=== PATIENT | female | born 1945 | race Caucasian/White ===

== ENCOUNTER 2020-11-02 18:58 | Emergency (ER) | payer MEDICARE, SELFPAY ==
[2020-11-02 19:12] VITALS: BP 162/62; PULSE 65; RESP 20; TEMP 36.7; O2SAT 98
[2020-11-02 19:26] VITALS: BP 162/62; PULSE 65; RESP 20; TEMP 36.7; O2SAT 98
--- NOTE | 2020-11-02 20:09 | ED.SKABFB ---
HPI - Skin/Abscess/Foreign Bdy General Chief complaint: Skin/Abscess/Foreign Body Stated complaint: Dog bite right arm Time Seen by Provider: 11/02/20 20:09 Source: patient and RN notes reviewed Mode of arrival: ambulatory Limitations: no limitations History of Present Illness HPI narrative: 75-year-old female who presents to [facility] with complaints of being bit by her family dog and around 5:30 PM today. Patient has 2 small puncture wounds and 2 small skin tears to the right distal forearm no drainage noted. Patient is on Eliquis and bruising noted to right distal forearm. Patient states that her Tetanus is up to date. Patient rates her pain 4/10 is aching, has not taken anything OTC for discomfort. She states she cleansed wounds at home with alcohol prior to arrival to clinic. MD complaint: other (Dog bite ) Related Data Home Medications Medication Instructions Recorded Confirmed apixaban [Eliquis] 5 mg PO DAILY 11/02/20 11/02/20 baclofen 10 mg PO DAILY 11/02/20 11/02/20 carvedilol 25 mg PO BID 11/02/20 11/02/20 ezetimibe 10 mg PO DAILY 11/02/20 11/02/20 flecainide 100 mg PO BID 11/02/20 11/02/20 furosemide 11/02/20 furosemide 40 mg PO BID 11/02/20 11/02/20 gabapentin 300 mg PO TID 11/02/20 11/02/20 insulin detemir U-100 [Levemir 44 unit SUBCUT DAILY 11/02/20 11/02/20 FlexTouch U-100 Insuln] liraglutide [Victoza 3-Chaz] 0.6 mg SUBCUT DAILY 11/02/20 11/02/20 ropinirole 0.5 mg PO DAILY 11/02/20 11/02/20 spironolactone 25 mg PO DAILY 11/02/20 11/02/20 Allergies Allergy/AdvReac Type Severity Reaction Status Date / Time codeine AdvReac Unknown Nausea Verified 02/10/14 20:18 Review of Systems Review of Systems: CONSTITUTIONAL: Denies fever, chills, or sweats. EYES: Denies visual changes, redness, or discharge. ENT: Denies rhinorrhea, congestion, sore throat, or otalgia. CARDIOVASCULAR: Denies chest pain, palpitations, or edema. RESPIRATORY: Denies cough or dyspnea. GASTROINTESTINAL: Denies abdominal pain, nausea, vomiting, or diarrhea. GENITOURINARY: Denies dysuria or hematuria. SKIN: Denies rash or itching.positive skin tears with bite gooden to right distal forearm from dog bite MUSCULOSKELETAL: Denies back pain, joint pain, or myalgia. NEUROLOGIC: Denies headache, numbness, or weakness. PSYCHIATRIC: Denies anxiety or depression. All systems reviewed & are unremarkable except as noted in HPI and below PMFSH Past Medical History Medical History (Updated 11/08/20 @ 11:52 by Kareen Moore NP) Breast cancer with chemotherapy Diabetes mellitus Elevated cholesterol Hypertension Restless leg syndrome Surgical History Surgical History (Updated 11/08/20 @ 11:51 by Kareen Moore NP) History of bilateral mastectomy History of heart valve replacement aortic Social History Social History (Updated 11/08/20 @ 11:52 by Kareen Moore NP) Smoking status: Never smoker Alcohol intake: current Alcohol use details: rare Substance use: never Living arrangements: with family Gender identity (if verbalized by the patient): Female Comments At time of signature, agree with nursing past medical, surgical, social and family history. There is no relevant family history pertinent to the presenting complaint Exam Narrative: GENERAL: Well-appearing, well-nourished, and in no acute distress. HEAD: Normocephalic, atraumatic. EYES: PERRLA and EOMI. ENT: Nares clear, no rhinorrhea or epistaxis. Mucous membranes moist. NECK: Supple. CHEST: Clear to auscultation. No respiratory distress. HEART: Regular rate and rhythm. No murmur heard. Normal peripheral pulses. ABDOMEN: Soft, nontender, nondistended, normal active bowel sounds. EXTREMITIES: Normal range of motion. No edema. SKIN: Warm, dry, Positive for puncture gooden to right distal forearm with 2 small skin tears noted with no active bleeding noted, swelling and bruising is present, patient is on Eliquis post aortic alix replacement. Tetanus is up t
== END 2020-11-02 20:32 | disposition home or self-care (01) ==
PROVIDERS: Emergency Provider Registered Nurse; PCP Internal Medicine
DX: S51.811A Laceration without foreign body of right forearm, initial encounter (principal); W54.0XXA Bitten by dog, initial encounter; Z79.01 Long term (current) use of anticoagulants; I10 Essential (primary) hypertension; E78.00 Pure hypercholesterolemia, unspecified; E11.9 Type 2 diabetes mellitus without complications; Z95.2 Presence of prosthetic heart valve; Z90.10 Acquired absence of unspecified breast and nipple
CPT/HCPCS: 99203; G0463

== ENCOUNTER 2020-11-14 10:00 | Emergency (ER) | payer MEDICARE, SELFPAY ==
[2020-11-14 10:07] VITALS: BP 152/55; PULSE 61; RESP 16; TEMP 37.3; O2SAT 100
--- NOTE | 2020-11-14 10:09 | ED.SKABFB ---
HPI - Skin/Abscess/Foreign Bdy General Chief complaint: Skin/Abscess/Foreign Body Stated complaint: rash Time Seen by Provider: 11/14/20 10:09 History of Present Illness HPI narrative: 75-year-old female presents to the [facility] with complaints of a rash to her face. Patient states that she noticed it yesterday and started at her left ear and has simply gone from the left ear across her face into her eyelids. No tongue swelling or lip swelling. Denies fevers. Denies shortness of breath, chest pain or abdominal pain. No treatment prior to arrival Related Data Home Medications Medication Instructions Recorded Confirmed apixaban [Eliquis] 5 mg PO DAILY 11/02/20 11/14/20 baclofen 10 mg PO DAILY 11/02/20 11/14/20 carvedilol 25 mg PO BID 11/02/20 11/14/20 ezetimibe 10 mg PO DAILY 11/02/20 11/14/20 flecainide 100 mg PO BID 11/02/20 11/14/20 furosemide 40 mg PO BID 11/02/20 11/14/20 gabapentin 300 mg PO TID 11/02/20 11/14/20 insulin detemir U-100 [Levemir 44 unit SUBCUT DAILY 11/02/20 11/14/20 FlexTouch U-100 Insuln] liraglutide [Victoza 3-Chaz] 0.6 mg SUBCUT DAILY 11/02/20 11/14/20 ropinirole 0.5 mg PO DAILY 11/02/20 11/14/20 spironolactone 25 mg PO DAILY 11/02/20 11/14/20 Allergies Allergy/AdvReac Type Severity Reaction Status Date / Time codeine AdvReac Unknown Nausea Verified 11/14/20 10:13 Review of Systems Review of Systems: All systems reviewed & are unremarkable except as noted in HPI and below Constitutional: Constitutional: Reports no additional constitutional complaints, Denies chills and Denies fever(s) Eyes: Eyes: Reports no additional eye complaints ENT: Reports system reviewed and no additional complaints, except as documented Cardiovascular: Cardiovascular: Reports no additional cardiovascular complaints Respiratory: Respiratory: Reports no additional respiratory complaints Musculoskeletal: Musculoskeletal: Reports no additional musculoskeletal complaints Integumentary/Breasts: Skin/Breast: Reports as per HPI, Reports pruritus, Reports erythema and Reports rash Neurologic: Reports system reviewed and no additional complaints, except as documented Psychiatric: Psychiatric: Reports no additional psychiatric complaints Allergic/Immunologic: Allergic/Immunologic: Reports no additional allergic/immunologic complaints, Denies lip swelling, Denies throat swelling, Denies tongue swelling and Denies wheezing PMFSH Past Medical History Medical History Breast cancer with chemotherapy Diabetes mellitus Elevated cholesterol Hypertension Restless leg syndrome Surgical History Surgical History History of bilateral mastectomy History of heart valve replacement aortic Social History Social History Smoking status: Never smoker Alcohol intake: current Alcohol use details: rare Substance use: never Gender identity (if verbalized by the patient): Female Comments At the time of my signature, I reviewed and agree with the nursing past medical, surgical, social, and family history. There is no relevant family history pertinent to the patient complaint. Exam Const: General: no acute distress, alert and ill appearing chronically Nutritional Appearance: well nourished and obese Orientation/consciousness: patient oriented x3 Limitations: no limitations HENMT: Head: normal to inspection Ears: external ears normal, TM's normal bilaterally and EAC's normal Eyes: Conjunctivae: conjunctivae normal Pupils: Equal, round and reactive pupils present Neck: Neck: normal visual inspection, no lymphadenopathy and no meningeal signs Chest: Chest palpation & inspection: normal inspection of the chest Resp: Effort & Inspection: normal respiratory effort Auscultation: clear to auscultation bilaterally Cardio: Rate: regular rate Rhythm: regular rhythm
== END 2020-11-14 10:23 | disposition home or self-care (01) ==
PROVIDERS: Emergency Provider Nurse Practitioner; PCP Internal Medicine
DX: R21 Rash and other nonspecific skin eruption (principal); E11.9 Type 2 diabetes mellitus without complications; I10 Essential (primary) hypertension; Z79.01 Long term (current) use of anticoagulants; Z79.4 Long term (current) use of insulin
CPT/HCPCS: 99213; G0463

== ENCOUNTER 2021-03-14 11:47 | Emergency (ER) | payer MEDICARE, SELFPAY ==
--- NOTE | ~2021-03-14 | XR_ITS ---
XR pelvis 1-2V DATE: 03/14/2021 14:33 INDICATION: Low back pain, pelvis pain. No known injury. TECHNIQUE: 2 AP views COMPARISON: None FINDINGS: The pubic symphysis and sacroiliac joints are intact. No pelvic fracture or bone destructio n is detected. No fracture or dislocation is evident at either hip. IMPRESSION: No pelvic fracture or bone destruction is detected Reviewed, dictated and finalized at location A. LITIES AND GROUNDS DIRECTOR
--- NOTE | ~2021-03-14 | XR_ITS ---
EXAMINATION: XR chest 2V DATE: 03/14/2021 14:32 INDICATION: Shortness of breath TECHNIQUE: PA and lateral views of the chest were obtained. COMPARISON: None FINDINGS: Lungs are clear with no focal airspace opacities, pulmonary edema, pleural effusion or pneumothorax. Heart size is normal. Right upper mediastinal mass. Postoperative changes including aortic valve repl acement, surgical clips at the anterolateral right chest wall the junction of the right breast and ax illa as well as numerous surgical clips and more anterior skin raj in the upper abdomen. There ar e bridging osteophytes at multiple levels in the spine, consistent with diffuse idiopathic skeletal h yperostosis (DISH). Old sternal fracture. IMPRESSION: 1. Right upper mediastinal mass which could be due to lymphadenopathy, lymphoma or other neoplasm eit her benign or malignant and either tortuous or aneurysmal vasculature. Recommend further evaluation w ith contrast-enhanced chest CT. 2. No acute cardiopulmonary disease. Reviewed, dictated and finalized at location A. LE PAINT SPECIALIST IMPRESSION: 1. Right upper mediastinal mass which could be due to lymphadenopathy, lymphoma or other neoplasm either benign or malignant and either tortuous or aneurysmal vasculature. Recommend further evaluation with contrast-enhanced chest CT. 2. No acute cardiopulmonary disease.
--- NOTE | ~2021-03-14 | XR_ITS ---
XR lumbar spine 2-3V DATE: 03/14/2021 14:33 INDICATION: Low back pain. No known injury. TECHNIQUE: AP, lateral, coned lateral lumbosacral views COMPARISON: None FINDINGS: There is diffuse osteopenia. There is mild to moderate dextroscoliosis of the lumbar spine. There is degenerative spurring of the lower thoracic spine. There is multilevel degenerative disc disease, most pronounced at L1-2 and L2-3, moderate at L3-4 and L5-S1. There is associated mild retrolisthesis at L2-3. There is degenerative change at the apophyseal joints particularly in the mid and lower lumbar and roya mbosacral area with associated grade 1 anterolisthesis at L4-5. The sacroiliac joints are intact. There is extensive calcification of the abdominal aorta and common iliac arteries; no abdominal aorti c aneurysm is evident. IMPRESSION: Diffuse osteopenia Dextro scoliosis of the lumbar spine Extensive degenerative changes Reviewed, dictated and finalized at location A. SKIDDER
--- NOTE | ~2021-03-14 | XR_ITS ---
XR sacrum coccyx min 2V DATE: 03/14/2021 14:34 INDICATION: Low back pain. No known injury. TECHNIQUE: AP, angled AP and lateral views COMPARISON: None FINDINGS: The pubic symphysis and sacroiliac joints are intact. No sacral fracture or bone destructio n is detected. The coccyx appears intact. IMPRESSION: No sacral or coccygeal fracture is evident Reviewed, dictated and finalized at location A. B2B OUTSIDE SALES REPRESENTATIVE
[2021-03-14 12:05] VITALS: BP 151/65; PULSE 69; RESP 20; TEMP 37; O2SAT 100
--- NOTE | 2021-03-14 13:17 | ED.GENADULT ---
HPI - General Adult General Chief complaint: Back Pain/Injury Stated complaint: Lower back pain Source: patient Mode of arrival: ambulatory Limitations: no limitations History of Present Illness HPI narrative: Patient presents for pain in the coccyx since last . She cannot identify any precipitating cause or injury. Pain is intermittent, more notable when standing and sitting, relieved when laying down. Providing of the descriptive quality of the pain. She rates that 8 out of 10 in severity. No urinary symptoms. She states that last Sunday she developed some sinus congestion. She took a home COVID test last which was positive. She denies any fever, chills, loss of taste/smell, cough, shortness of breath, nausea, vomiting, diarrhea. She lives with her . He is not symptomatic. She has received both doses of her COVID-vaccine as well as a booster. She has an underlying hx of congestive heart failure, atrial fibrillation, diabetes, hyperlipidemia, obesity. She is anticoagulated with Eliquis. She has not been checking her BS as of late. Related Data Home Medications Medication Instructions Recorded Confirmed apixaban [Eliquis] 5 mg PO DAILY 11/02/20 03/14/21 baclofen 10 mg PO DAILY 11/02/20 03/14/21 carvedilol 25 mg PO BID 11/02/20 03/14/21 ezetimibe 10 mg PO DAILY 11/02/20 03/14/21 flecainide 100 mg PO BID 11/02/20 03/14/21 furosemide 40 mg PO BID 11/02/20 03/14/21 gabapentin 300 mg PO TID 11/02/20 03/14/21 liraglutide [Victoza 3-Chaz] 0.6 mg SUBCUT DAILY 11/02/20 03/14/21 ropinirole 0.5 mg PO DAILY 11/02/20 03/14/21 spironolactone 25 mg PO DAILY 11/02/20 03/14/21 insulin degludec [Tresiba 40 unit SUBCUT DAILY 03/14/21 03/14/21 FlexTouch U-200] Allergies Allergy/AdvReac Type Severity Reaction Status Date / Time codeine AdvReac Unknown Nausea Verified 03/14/21 12:49 Review of Systems Review of Systems: CONSTITUTIONAL: Denies fever, chills, or sweats. EYES: Denies visual changes, redness, or discharge. ENT: Reports recent sinus congestion, now resolved. Denies rhinorrhea, sore throat, or otalgia. CARDIOVASCULAR: Denies chest pain, palpitations, or edema. RESPIRATORY: Denies cough or dyspnea. GASTROINTESTINAL: Denies abdominal pain, nausea, vomiting, or diarrhea. GENITOURINARY: Denies dysuria or hematuria. SKIN: Denies rash or itching. MUSCULOSKELETAL: Reports pain in the tailbone. NEUROLOGIC: Denies headache, numbness, dizziness, or weakness. PSYCHIATRIC: Denies anxiety or depression. [facility] Past Medical History Medical History (Updated 03/14/21 @ 15:58 by John Cho, ROZINA, BC) Atrial fibrillation Breast cancer with chemotherapy Congestive heart failure Diabetes mellitus Elevated cholesterol Hypertension Restless leg syndrome Surgical History Surgical History History of bilateral mastectomy History of heart valve replacement aortic No pertinent past surgical history Family History Family History (Updated 03/14/21 @ 13:21 by John Cho, PIANO REGULATOR INSPECTOR, BC) Mother No pertinent past medical history Social History Social History Smoking status: Never smoker Alcohol intake: current Alcohol use details: rare Substance use: never Living arrangements: with family Gender identity (if verbalized by the patient): Female Sexual Orientation (if Verbalized by the Patient): Straight or Heterosexual Spiritual care concerns: No Exam Narrative: GENERAL: Appears mildly ill, although nontoxic HEAD: Normocephalic, atraumatic. EYES: PERRLA and EOMI. ENT: Nares clear, no rhinorrhea or epistaxis. Mucous membranes moist. Oropharynx without tonsillar hypertrophy exudate or other lesions. Bilateral TMs pearly vega nonbulging NECK: Supple. No adenopathy or masses. No carotid bruits or JVD CHEST: Bilateral wheezing and rales noted HEART: Regular rate
[2021-03-14 13:30] LABS: Glucose Point of Care 153 mg/dl (65-105)
== END 2021-03-14 15:50 | disposition short-term general hospital (02) ==
PROVIDERS: Emergency Provider Nurse Practitioner; PCP Internal Medicine
DX: U07.1 COVID-19 (principal); J98.59 Other diseases of mediastinum, not elsewhere classified; M54.50 Low back pain, unspecified; I48.91 Unspecified atrial fibrillation; I11.0 Hypertensive heart disease with heart failure; I50.9 Heart failure, unspecified; G25.81 Restless legs syndrome; E78.00 Pure hypercholesterolemia, unspecified; Z85.3 Personal history of malignant neoplasm of breast; Z90.13 Acquired absence of bilateral breasts and nipples; E11.9 Type 2 diabetes mellitus without complications; Z95.2 Presence of prosthetic heart valve; Z92.21 Personal history of antineoplastic chemotherapy; Z79.01 Long term (current) use of anticoagulants; E78.5 Hyperlipidemia, unspecified
CPT/HCPCS: 71046; 72100; 72170; 72220; 81003; 82948; 87426; 99214; C9803; G0463

== ENCOUNTER 2023-06-14 10:58 | Emergency (ER) | payer MEDICARE, SELFPAY ==
[2023-06-14 11:17] VITALS: BP 149/59; PULSE 71; RESP 16; TEMP 36.8; O2SAT 95
--- NOTE | 2023-06-14 11:32 | ED.GENADULT ---
HPI - General Adult General Chief complaint: Wound/Laceration Stated complaint: Wound on Left Arm Time Seen by Provider: 06/14/23 11:32 Source: patient, RN notes reviewed and old records reviewed Mode of arrival: ambulatory Limitations: no limitations History of Present Illness HPI narrative: 77-[facility]-old [facility] to [facility] for complaint of skin tear to left distal dorsal forearm. Patient states she hit her arm on her walker yesterday. patient was able to control bleeding at home. Patient has been cleaned and dressed wound with pressure dressing at home. Patient is coming in today with increased pain and for wound check. Patient denies fever, nausea, numbness, tingling. bleeding controlled upon arrival. Patient in no acute distress. Related Data Home Medications Medication Instructions Recorded Confirmed baclofen 10 mg tablet 10 mg PO DAILY 11/02/20 03/14/21 carvedilol 25 mg tablet 25 mg PO BID 11/02/20 03/14/21 ezetimibe 10 mg tablet 10 mg PO DAILY 11/02/20 03/14/21 flecainide 100 mg tablet 100 mg PO BID 11/02/20 03/14/21 furosemide 40 mg tablet 40 mg PO BID 11/02/20 03/14/21 gabapentin 300 mg capsule 300 mg PO TID 11/02/20 03/14/21 liraglutide 0.6 mg/0.1 mL (18 mg/3 0.6 mg subcut DAILY 11/02/20 03/14/21 mL) subcutaneous pen injector (Victoza 3-Chaz) ropinirole 0.5 mg tablet 0.5 mg PO DAILY 11/02/20 03/14/21 insulin degludec 200 unit/mL (3 40 unit subcut DAILY 03/14/21 03/14/21 mL) subcutaneous pen (Tresiba FlexTouch U-200 insulin) Daily Multivitamin 06/14/23 [place] 3 1 g 06/14/23 cholecalciferol (vitamin D3) 25 25 mcg PO DAILY 06/14/23 06/14/23 mcg (1,000 unit) capsule (Vitamin D3) finerenone 10 mg tablet (Kerendia) mg 06/14/23 rivaroxaban 15 mg tablet (Xarelto) 15 mg PO DAILY 06/14/23 06/14/23 Allergies Allergy/AdvReac Type Severity Reaction Status Date / Time codeine AdvReac Unknown Nausea Verified 06/14/23 11:09 Review of Systems Review of Systems: All systems reviewed & are unremarkable except as noted in HPI and below Constitutional: Constitutional: Reports as per HPI and Denies fever(s) Eyes: Eyes: Reports no additional eye complaints ENT: Reports system reviewed and no additional complaints, except as documented Cardiovascular: Cardiovascular: Reports no additional cardiovascular complaints, Denies chest pain and Denies dyspnea Respiratory: Respiratory: Reports no additional respiratory complaints, Denies cough and Denies dyspnea Musculoskeletal: Musculoskeletal: Reports no additional musculoskeletal complaints Integumentary/Breasts: Skin/Breast: Reports wounds (skin tear to left lower arm) Neurologic: Reports system reviewed and no additional complaints, except as documented Psychiatric: Psychiatric: Reports no additional psychiatric complaints [facility] Past Medical History Medical History Atrial fibrillation Breast cancer with chemotherapy Congestive heart failure Diabetes mellitus Elevated cholesterol Hypertension Restless leg syndrome Surgical History Surgical History History of bilateral mastectomy History of heart valve replacement aortic No pertinent past surgical history Family History Family History Mother No pertinent past medical history Social History Social History Smoking status: Never smoker Alcohol intake: current Alcohol use details: rare Substance use: never Living arrangements: with family Gender identity (if verbalized by the patient): Female Sexual Orientation (if Verbalized by the Patient): Straight or Heterosexual Spiritual care concerns: No Comments At the time of my signature, I reviewed and agree with the nursing past medical, surgical, social, and family history. There is
== END 2023-06-14 12:18 | disposition home or self-care (01) ==
PROVIDERS: Emergency Provider Nurse Practitioner Family; PCP Internal Medicine
DX: S51.812A Laceration without foreign body of left forearm, initial encounter (principal); W22.8XXA Striking against or struck by other objects, initial encounter; I48.91 Unspecified atrial fibrillation; I11.0 Hypertensive heart disease with heart failure; I50.9 Heart failure, unspecified; G25.81 Restless legs syndrome; E11.9 Type 2 diabetes mellitus without complications; Z85.3 Personal history of malignant neoplasm of breast; Z90.13 Acquired absence of bilateral breasts and nipples; Z92.21 Personal history of antineoplastic chemotherapy; Z95.2 Presence of prosthetic heart valve
CPT/HCPCS: 99212; G0463

== ENCOUNTER 2023-12-17 11:52 | Emergency (ER) | payer MEDICARE, SELFPAY ==
[2023-12-17 12:00] VITALS: BP 124/46; PULSE 78; RESP 20; TEMP 37.7; O2SAT 97
--- NOTE | 2023-12-17 12:01 | ED.FEMALEGU ---
HPI - Female Genitourinary General Chief complaint: Urogenital-Female Stated complaint: Fatigue/Urinary Problem Time Seen by Provider: 12/17/23 11:53 Source: patient Mode of arrival: ambulatory Limitations: no limitations History of Present Illness HPI Narrative: Patient is a 78-year-old female who presents with 2 days of urinary frequency and urgency. Patient has also had fatigue. reports yesterday after she woke up out of a nap she had a short episode of confusion talking about her son. Denies any low back pain, bladder pain, fever, chills, nausea, vomiting, diarrhea. MD elicited complaint: dysuria Related Data Home Medications Medication Instructions Recorded Confirmed baclofen 10 mg tablet 10 mg PO DAILY 11/02/20 03/14/21 carvedilol 25 mg tablet 25 mg PO BID 11/02/20 03/14/21 ezetimibe 10 mg tablet 10 mg PO DAILY 11/02/20 03/14/21 flecainide 100 mg tablet 100 mg PO BID 11/02/20 03/14/21 furosemide 40 mg tablet 40 mg PO BID 11/02/20 03/14/21 gabapentin 300 mg capsule 300 mg PO QID 11/02/20 03/14/21 liraglutide 0.6 mg/0.1 mL (18 mg/3 0.6 mg subcut DAILY 11/02/20 03/14/21 mL) subcutaneous pen injector (Victoza 3-Chaz) ropinirole 0.5 mg tablet 0.5 mg PO DAILY 11/02/20 03/14/21 insulin degludec 200 unit/mL (3 40 unit subcut DAILY 03/14/21 03/14/21 mL) subcutaneous pen (Tresiba FlexTouch U-200 insulin) Daily Multivitamin 06/14/23 [place] 3 1 g 06/14/23 cholecalciferol (vitamin D3) 25 25 mcg PO DAILY 06/14/23 06/14/23 mcg (1,000 unit) capsule (Vitamin D3) finerenone 10 mg tablet (Kerendia) mg 06/14/23 rivaroxaban 15 mg tablet (Xarelto) 15 mg PO DAILY 06/14/23 06/14/23 Allergies Allergy/AdvReac Type Severity Reaction Status Date / Time codeine AdvReac Unknown Nausea Verified 09/05/23 16:16 Review of Systems Review of Systems: All systems reviewed & are unremarkable except as noted in HPI and below Constitutional: Constitutional: Denies chills, Denies fever(s), Denies headache(s), Denies malaise and Denies weakness Eyes: Eyes: Denies change in vision, Denies eye discharge and Denies irritation ENT: Denies otalgia, Denies headache(s), Denies nasal congestion, Denies nasal discharge, Denies sinus pain and Denies sore throat Cardiovascular: Cardiovascular: Denies chest pain, Denies edema, Denies palpitations and Denies dyspnea Respiratory: Respiratory: Denies cough and Denies dyspnea Gastrointestinal: Gastrointestinal: Denies abdominal pain, Denies diarrhea, Denies nausea and Denies vomiting Genitourinary: Genitourinary: Denies hematuria, Reports nocturia, Reports dysuria, Denies flank pain and Reports urinary urgency Musculoskeletal: Musculoskeletal: Denies back pain and Denies numbness Integumentary/Breasts: Skin/Breast: Denies pruritus and Denies rash Neurologic: Denies headache(s), Denies numbness and Denies weakness Psychiatric: Psychiatric: Reports no additional psychiatric complaints Endocrine: Endocrine: Reports fatigue and Denies palpitations PMFSH Past Medical History Medical History Atrial fibrillation Breast cancer with chemotherapy Congestive heart failure Diabetes mellitus Elevated cholesterol Hypertension Restless leg syndrome Surgical History Surgical History History of bilateral mastectomy History of heart valve replacement aortic No pertinent past surgical history Family History Family History Mother No pertinent past medical history Social History Social History Smoking status: Never smoker Alcohol intake: current Alcohol use details: rare Substance use: never Living arrangements: with family Gender identity (if verbalized by the patient): Female Sexual Orientation (if Verbalized by the Patient): Straight or H
[2023-12-17 12:28] LABS: EDUAAPPEAR Clear; EDUABILI Negative (Negative); EDUABLOOD Trace (Negative); EDUACOLOR1 Yellow; EDUAGLUCOSE Negative (Negative); EDUAKETONE Negative (Negative); EDUALEUKO Negative (Negative); EDUANITRATE Negative (Negative); EDUAPROTEIN Negative (Negative); EDUAUROBILI 0.2
[2023-12-17 13:00] LABS: EDCOVIDSCREEN Negative (Negative); EDINFLUASCREEN Negative (Negative); EDINFLUBSCREEN Negative (Negative)
== END 2023-12-17 12:55 | disposition home or self-care (01) ==
PROVIDERS: Emergency Provider Nurse Practitioner Family; PCP Internal Medicine
DX: R35.0 Frequency of micturition (principal); R53.83 Other fatigue; Z20.822 Contact with and (suspected) exposure to COVID-19; I48.91 Unspecified atrial fibrillation; I11.0 Hypertensive heart disease with heart failure; I50.9 Heart failure, unspecified; E11.9 Type 2 diabetes mellitus without complications; G25.81 Restless legs syndrome; E78.00 Pure hypercholesterolemia, unspecified; Z85.3 Personal history of malignant neoplasm of breast; Z90.13 Acquired absence of bilateral breasts and nipples; Z95.2 Presence of prosthetic heart valve
CPT/HCPCS: 81003; 87086; 87426; 87804; 99213; G0463

== ENCOUNTER 2024-05-30 14:41 | Emergency (ER) | payer MEDICARE, SELFPAY ==
--- OUTSIDE RECORDS SUMMARY | 2024-05-30 14:44 | XMS_ITS | Encounter Summary ---
Author Organization [facility] Address [address] [place] [address] Care Team Providers Care Relocation Director Name Role Phone Coleman Barrera MD Primary Care Provider + Romain Joaquin MD Unavailable [phone] Edin Banks MD Unavailable [phone] Kathy Nash MD Unavailable [phone] Michele Eldridge MD Unavailable [phone] Encounter Details Date Type Department Care Team (Late st Contact Info) Description 05/03/2023 Documentation [facility] IM [address] [place], [place] [id number] Verena Motley RN Social History Tobacco Use Types Packs/Day Years Used Date Smoking Tobacco: Never Smokeless Tobacco: Never Alcohol Use Standard Drinks/Week Comments No 0 (1 standard drink = 0.6 oz pur e alcohol) AUDIT-C Answer Date Recorded Q1: How often do you have a drink containing alcohol? Never 05/02/2023 Q2: How many drinks containi ng alcohol do you have on a typical day when you are drinking? Patient does not drink Q3: How often do you have si x or more drinks on one occasion? Never 05/02/2023 Personal Safety Answer Date Recorded Have you ever been in or are you currently in a harmful physical or emotional relationship or is someone making you feel afraid or unsafe? 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 Gender Identity Not on file Sexual Orientation Straight 04/04/2019 4: 40 PM FITTINGS TIGHTENER documented as of this encounter Plan of Treatment Not on file documented as of this encounter Visit Diagnoses Not on filedocumented in this encounter Care Teams Relocation Director Relationship Specialty Start Date End Date Coleman Barrera MD [address] [place] [address] [place] [address] PCP - General 05/26/16 Romain Joaquin MD [address] [place] [address] [place] [address] Medical Oncologist/Hematologi Medical Oncology 10/16/19 Edin Banks MD [address] [place] [address] [place] [address] Consulting Physician Cardiology 04/27/23 Kathy Nash MD [address] [facility] [place] [id number] [place] [address] Cardiothoracic Surgery 06/29/23 Michele Eldridge MD [address] [facility] [id number] [place] [address] Consulting Physician Cardiology 06/29/23 documented as of this encounter
--- OUTSIDE RECORDS SUMMARY | 2024-05-30 14:44 | XMS_ITS | Encounter Summary ---
Author Organization [facility] Address [address] [place] [address] Care Team Providers Care Virtual Assistant Name Role Phone Coleman Barrera MD Primary Care Provider + Romain Joaquin MD Unavailable [phone] Edin Banks MD Unavailable [phone] Kathy Nash MD Unavailable [phone] Michele Eldridge MD Unavailable [phone] Encounter Details Date Type Department Care Team (Late st Contact Info) Description 04/23/2024 Results Follow-Up [place] [employer] [address] [place] [id number] Lanette Veliz MD [address] [address] Social History Tobacco Use Types Packs/Day Years Used Date Smoking Tobacco: Never Smokeless Tobacco: Never Alcohol Use Standard Drinks/Week Comments No 0 (1 standard drink = 0.6 oz pur e alcohol) AUDIT-C Answer Date Recorded Q1: How often do you have a drink containing alcohol? Never 06/28/2023 Q2: How many drinks containi ng alcohol do you have on a typical day when you are drinking? Patient does not drink Q3: How often do you have si x or more drinks on one occasion? Never 06/28/2023 Personal Safety Answer Date Recorded Have you ever been in or are you currently in a harmful physical or emotional relationship or is someone making you feel afraid or unsafe? 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 Gender Identity Not on file Sexual Orientation Straight 04/04/2019 4: 40 PM CLOTH DYER documented as of this encounter Plan of Treatment Not on file documented as of this encounter Visit Diagnoses Not on filedocumented in this encounter Care Teams Virtual Assistant Relationship Specialty Start Date End Date Coleman Barrera MD [address] [place] [address] PCP - General 05/26/16 Romain Joaquin MD [address] [place] [address] [place] [address] Medical Oncologist/Hematologi Medical Oncology 10/16/19 Edin Banks MD [facility] [place] [address] Consulting Physician Cardiology 04/27/23 Kathy Nash MD [address] [facility] [place] [phone] [place] [address] Cardiothoracic Surgery 06/29/23 Michele Eldridge MD [address] [facility] [place] [phone] [place] [address] Consulting Physician Cardiology 06/29/23 documented as of this encounter
--- OUTSIDE RECORDS SUMMARY | 2024-05-30 14:44 | XMS_ITS ---
Author Organization [facility] Address [address] [place] [address] Care Team Providers Care Nuclear Control Operator Name Role Phone Coleman Barrera MD Primary Care Provider + Romain Joaquin MD Unavailable [phone] Edin Banks MD Unavailable [phone] Kathy Nash MD Unavailable [phone] Michele Eldridge MD Unavailable [phone] Active Problems Problem Noted Date Diagnosed Date S/P TAVR (transcatheter aortic valve replacement ) 06/28/2023 Assessment & Plan (05/26/2024 3:59 PM CDT): Severe sp BIO AVR April 2011-now SP Laura TAVR 06/28/2023 #23 mm with Tara Valve, doing well in clinic today. Stable NYHA class II findings. Edema in her legs is chronic. ECHO from today pending. Continue ASA, SBE. Lasix 40mg BID. Labs, ECHO and EKG today. Further recs pending ECHO from today. Dr. Agee as scheduled. Assessment & Plan (08/07/2023 7:03 AM CDT): Severe sp BIO AVR April 2011-now SP Laura TAVR 06/28/2023 #23 mm with Tara Valve, doing well in clinic today. Stable NYHA class II findings. Her weight is up today, but no other signs/symptoms of volume overload. Edema in her legs is new sp discharge. ECHO today with Mean: 17 and Peak 30. Continue ASA, SBE and cardiac rehab. Lasix 40mg BID. Labs, ECHO and EKG today. Dr. Agee as scheduled. Renee or Dr. Eldridge in 11 months. Assessment & Plan (06/28/2023 3:00 PM CDT): S/p Laura TAVR with BASILICA 5/2 ASA 81 mg daily Restart Xarelto tomorrow AM if no bleeding issues PT/OT evaluation tomorrow Am Monitor on telemetry for any evidence of high degree AVB CXR, TTE, EKG and labs tomorrow AM Type 2 diabetes mellitus wit hout complication, with long-term current use of insulin 2023 Assessment & Plan (06/28/2023 1:00 PM CDT): Accjayla, SSI Aortic valve stenosis 05/10/2023 Coronary arteriosclerosis 03/29/2023 Assessment & Plan (05/26/2024 4:01 PM CDT): Stable. Denies angina. DIAZ could be an anginal equivalent. Intermediate CAD on [facility] prior to TAVR work up. ASA and statin. Aortic stenosis, severe 03/29/2023 Assessment & Plan (06/28/2023 12:57 PM CDT): Laura TAVR with leaflet modification procedure (BASILICA) 5/2 Cellulitis of lower extremity 05/29/2021 Paroxysmal atrial fibrillation 05/29/2021 Assessment & Plan (08/07/2023 7:00 AM CDT): SR today with PVCs. Check electrolytes. Continue BB and Xarelto. Dr. Veliz for further recs. 48 hour holter pending-flecainide held. Assessment & Plan (06/28/2023 12:59 PM CDT): Restart xarelto post-TAVR likely tomorrow Lower extremity edema 05/24/2021 Chronic deep vein thrombosis (DVT) of popliteal vein of left lower extremity 05/24/2021 Age-related osteoporosis wit hout current pathological fracture 07/15/2020 Screen for colon cancer 06/08/2020 Overview (06/08/2020): Added automatically from request for surgery [id number] Breast cancer 04/11/2019 Overview (04/11/2019): Overview: completed chem on 11/27/11 Disorder resulting from impaired renal function 04/11/2019 Overview (04/11/2019): Overview: Renal Insufficiency Rheumatoid arthritis involving right hand 2019 Pulmonary HTN (CMS/HCC) 05/25/2017 Non-rheumatic mitral regurgitation 05/25/2017 Atrial fibrillation with RVR 05/24/2017 Assessment & Plan (05/26/2024 3:58 PM CDT): Denies reoccurrence, initially when I listened to her today, she sounded irregular. However, her EKG was Sinus. 48 hour holter to rule out AFIB as cause of her worsening fatigue, amio, coreg and xarelto. Acute on chronic diastolic c ongestive heart failure (CMS/HCC) 05/24/2017 BELLA on CPAP 12/22/2016 Assessment & Plan (06/28/2023 12:58 PM CDT): Continue CPAP Healthcare maintenance 09/28/2016 Medication management 09/28/2016 Stage 3a chronic kidney disease 09/28/2016 Assessment & Plan (06/28/2023 12:59 PM CDT): Monitor closely Avoid nephrotoxic agents Assessment & Plan (09/28/2016 10:35 AM CDT): Dc meloxicam Primary osteoarthritis of both knees 08/22/2016 Morbid obesity with BMI of 40.0-44.9, adult 2 08/2016 Arthritis 04/01/2015 Rheumatoid arthritis 03/31/2015 Dupuytren's contracture 01/05/2015 Sternal pain 03/25/2014 Aortic valve disorder 07/12/2013 Overview (05/31/2016): AORTIC VALVE DISORDER Adiposity 07/12/2013 Overview (06/01/2016): OBESITY NOS History of prosthetic heart valve 03/11/2012 Overview (06/01/2016): S/P AVR (aortic valve replacement) Bruit 12/15/2011 High cholesterol 11/28/2011 Tricuspid valve disorders, non-rheumatic 012 Overview (04/11/2019): Overview: Non-toxic multinodular goiter 09/14/2011 Overview (05/31/2016): Multinodular goiter (nontoxic) Hypertension 06/30/2011 Overview (05/31/2016): Hypertension Assessment & Plan (05/26/2024 4:16 PM CDT): Unctonrolled, asked that she monitor this at home. Coreg. Assessment & Plan (08/07/2023 7:02 AM CDT): SBP stable at home, hold Norvasc and see if edema improves, log BP at home and follow up with Dr. Veliz for additional recs. May need aldactone or additional coreg for BP. Coreg 12.5 mg BID. Assessment & Plan (06/28/2023 12:58 PM CDT): Goal SBP <160 and MAP >65 Personal history of primary malignant neoplasm o f breast 06/30/2011 Overview (06/01/2016): History of breast cancer Abnormal mammogram 06/30/2011 Overview (06/01/2016): Abnormal mammogram Current Treatment and Therapy Plans No current plan information found. Past Treatment and Therapy Plans Lifetime Dose Tracking * Chemical Lifetime Dose Automatic Entry Manual Entr y Air kerma at the reference point (Ka,r) 2,697 mGy 0 mGy 2,697 mGy Resolved Problems Problem Noted Date Diagnosed Date Resolved Date SHARI (acute kidney injury) 05/30/2021 Type 2 diabetes mellitus wit h hyperglycemia, with long-term current use of insulin 06/30/2011 Overview (06/01/2016): Diabetes mellitus
--- OUTSIDE RECORDS SUMMARY | 2024-05-30 14:44 | XMS_ITS | Clinical Summary ---
Author Organization [facility] Address [address] [place] [id number] Care Team Providers Care Merchant Banker Name Role Phone Coleman Barrera MD Primary Care Provider + Romain Joaquin MD Unavailable [phone] Edin Banks MD Unavailable [phone] Kathy Nash MD Unavailable [phone] Sean Eldridge MD Unavailable [phone] Allergies Active Allergy Reactions Criticality Noted Date Comments Codeine Nausea And Vomiting,Nausea only,Vomiting Medium 11/28/2011 Reaction: Nausea, Vomiting, , , Lqmsfqr-Lrv-Zmj Reductase Inhibitors Muscle pain Medium 07/02/2023 Reaction: Myalgias, Medications acetaminophen (TYLENOL) 325 mg tablet Take 500 mg by mouth every 6 (six) hours as needed for pain Active baclofen (LIORESAL) 10 mg tablet Take 1 tablet (10 mg total) by mouth nightly Active furosemide (LASIX) 40 mg tabletIndicatio ns:Edema,hypert ension Take 1 tablet (40 mg total) by mouth 2 (two) times a day AM and noon Active rOPINIRole (REQUIP) 0.5 mg tablet Take 1 tablet (0.5 mg total) by mouth nightly Active liraglutide (VICTOZA) 0.6 mg/0.1 mL (18 mg/3 mL) injectionIndica tions:type 2 diabetes mellitus Inject 1.8 mg under the skin every morning Indications: type 2 diabetes mellitus Active gabapentin (NEURONTIN) 300 mg capsule Take 1 capsule (300 mg total) by mouth 2 (two) times a day One at breakfast, one at noon Active gabapentin (NEURONTIN) 300 mg capsule Take 2 capsules (600 mg total) by mouth nightly Active cholecalciferol (VITAMIN D-3) 25 mcg (1,000 unit) tablet Take 1 tablet (1,000 Units total) by mouth every morning Active omega-3 fatty acids (LOVAZA) 1 gram capsule Take 1 capsule (1 g total) by mouth every morning Active multivitamin tablet Take 1 tablet by mouth every morning Active finerenone (Kerendia) 10 mg tablet Take 10 mg by mouth every morning Active rivaroxaban (XARELTO) 15 mg tablet Take 1 tablet (15 mg total) by mouth daily with breakfast Active TRESIBA 200 unit/mL (3 mL) pen for injection Inject 0.12 mL (24 Units total) under the skin nightly 4 Active aspirin 81 mg chewable tabletIndicatio ns:coronary artery disease Take 1 tablet (81 mg total) by mouth daily 4 06/30/19 25 Active bempedoic acid-ezetimibe (Nexlizet) 180-10 mg tablet Take by mouth daily Active carvediloL (COREG) 12.5 mg tablet Take 1 tablet (12.5 mg total) by mouth 2 (two) times a day with meals Active flecainide (TAMBOCOR) 50 mg tablet Take 1 tablet (50 mg total) by mouth 2 (two) times a day 60 tablet 11 5 04/23/19 26 Active amiodarone (PACERONE) 200 mg tablet 5 Active Active Problems Problem Noted Date Diagnosed Date [...] Assessment & Plan (06/28/2023 1:00 PM CDT): Accucheckcameron, SSI Aortic valve stenosis 05/10/2023 Coronary arteriosclerosis 03/29/2023 Assessment & Plan (05/26/2024 4:01 PM CDT): Stable. Denies angina. DIAZ could be an anginal equivalent. Intermediate CAD on [facility] prior to TAVR work up. ASA [...] (06/08/2020): Added automatically from request for surgery [id number] Breast cancer 04/11/2019 Overview (04/11/2019): Overview: completed [...] Morbid obesity with BMI of 40.0-44.9, adult 07/28 Arthritis 04/01/2015 Rheumatoid arthritis 03/31/2015 Dupuytren's contracture [...] Abnormal mammogram 06/30/2011 Overview (06/01/2016): Abnormal mammogram Resolved Problems Problem Noted Date Diagnosed Date Resolved Date SHARI (acute kidney injury) 05/30/2021 Type 2 diabetes mellitus wit h hyperglycemia, with long-term current use of insulin 06/30/2011 Overview (06/01/2016): Diabetes mellitus Encounters Date Type Department Care Team Description 05/29/2024 Results Follow-Up [facility] [address] [place] [phone] Sean Eldridge MD 05/28/2024 Orders Only [facility] Order at [address] [place] [phone] Lanette Veliz MD Abnormal finding of blood chemistry, unspecified (Primary Dx); Nonspecific abnormal results of thyroid function study 05/27/2024 Results Follow-Up [facility] Order [address] [place] [address] [address] [place] [address] Lanette Veliz MD 05/26/2024 4:05 PM CDT Ancillary Procedure [facility] Card[facility] [address] [place] [address] 8th [place] [address] [place] [phone] Atrial fibrillation with RVR (HCC) 05/26/2024 3:00 PM CDT Office Visit [facility] [address] [place] [address] 8th [place] [address] [place] [phone] Renee Disla NP Atrial fibrillation with RVR (HCC) (Primary Dx); S/P TAVR (transcatheter aortic valve replacement); Primary hypertension 05/26/2024 12:52 PM CDT - 05/26/2024 11:59 PM CDT Hospital Encounter [facility] [address] [facility] 8th [place] [phone] S/P TAVR (transcatheter aortic valve replacement) Discharge Disposition: Discharge to home or self care 05/26/2024 Results Follow-Up [facility] [address] [facility] 8th [place] [address] [place] [phone] Renee Disla NP 04/30/2024 9:55 AM AUTOMOBILE TECHNICIAN - 04/30/2024 11:59 PM AUTOMOBILE TECHNICIAN Hospital Encounter [facility] [address] [place] [address] Other thyrotoxicosis without thyrotoxic crisis or storm Discharge Disposition: Discharge to home or self care 04/23/2024 Orders Only [facility] Order at [facility] [address] [facility] [address] [place] [address] Lanette Veliz MD Hypothyroidism, unspecified type (Primary Dx) 04/23/2024 Results Follow-Up [facility] Order [id number] [facility] [address] [place] [address] Lanette Veliz MD 04/14/2024 Telephone [facility] [address] [facility] 8th [place] [address] [place] [address] Sean Eldridge MD from Last 3 Months Immunizations Immunization Administration Dates Next Due Influenza, Split 12/28/2011,01/11/2011, 0 Influenza, Trivalent, High D ose, Split, Preservative Free, Intramuscular 12/22/2016,01/18/2016,11/18/2014,02/04,12/16/2012 Influenza, Trivalent, IM (MDV) 01/14/2011,2008 Influenza, Unspecified 12/28/2011 Pneumococcal Polysaccharide PPV23 02/17/2015 TD Preservative Free 02/10/2014 Td, adsorbed 06/07/2010 ZOSTER LIVE 02/17/2015 Surgical History Surgery Date Site/Laterality Comments TOTAL ABDOMINAL HYSTERECTOMY W/ BILATERAL SALPINGOOPHORECTOMY JOSSY/BSO CHOLECYSTECTOMY 02/27/1980 - 02/25/1981 gallbladder surgery FOOT SURGERY 02/26/2010 - 02/25/2011 left foot surgery - cyst removal MASTECTOMY 02/26/2011 - 02/26/2012 Right Right Mastectomy AORTIC VALVE REPLACEMENT 02/26/2011 - 02/26/2012 aortic valve replacement MASTECTOMY 02/26/1983 - 02/26/1984 Left left modifieed radical mastectomy by Dr. Srinivasan Alexander OTHER SURGICAL HISTORY 02/26/2014 - 02/25/2015 fx sternum repair : surgery COLONOSCOPY 02/03/2011 ABDOMINAL HERNIA REPAIR CATARACT EXTRACTION, BILATERAL CARDIAC CATHETERIZATION Medical History Medical History Date Comments Hypertension Hypertension Adiposity obesity Hx Other Medical endometrial hyp erplasia Diabetes mellitus (HCC) Diabetes Hyperlipidemia Hyperlipidemia Malignant neoplasm of female breast (HCC) Cancer, breast Heart murmur heart murmur Type 2 diabetes mellitus (HCC) D iabetes type 2 Disorder of thyroid Thyroid dise ase - enlarged Hx Other Medical 2012 poison bhumi Medication monitoring encounter Morbid obesity with body mas s index (BMI) of 40.0 or higher (HCC) PVC (premature ventricular contraction) Aortic stenosis Sleep apnea CPAP Atrial fibrillation (HCC) Chronic kidney disease Restless leg Neuropathy Arthritis History of chemotherapy Awareness under anesthesia per p t started talking in the middle of open AV replacement Family History Medical History Relation Name Comments Hypertension Daughter 1 Hypertension; Diabetes Daughter 2 Diabetes mellit us; Other Father hit by truck; C ause of : hit by truck Other Mother bowel blockage; Cause of : bowel blockage Other Sister 2 Alive and well; Relation Name Status Comments Daughter 1 Daughter 2 Father (Age 84) Mother (Age 78) Sister 1 Alive Sister 2 Social History Tobacco Use Types Packs/Day Years Used Date Smoking Tobacco: Never Smokeless Tobacco: Never Tobacco Cessation:Counseling Given: Not Answered Alcohol Use Standard Drinks/Week Comments No 0 [...] on file Legal Sex Female 6:05 PM AUTOMOBILE TECHNICIAN Gender Identity Not on file Sexual Orientation Straight 04/04/2019 4: 40 PM AUTOMOBILE TECHNICIAN Obstetrics History Last Filed Vital Signs Vital Sign Reading Time Taken Comments Blood Pressure 160/73 05/26/2024 3:05 PM CDT Pulse 78 05/26/2024 3:05 PM CDT Temperature 37.1 C (98.8 F) 06/29/2023 3:08 PM CDT Respiratory Rate 18 02/07/2024 12:42 PM AUTOMOBILE TECHNICIAN Oxygen Saturation 91% 05/26/2024 3:05 PM CDT Inhaled Oxygen Concentration - - Weight 109.3 kg (241 lb) 05/26/2024 3:05 PM CDT Height 170.2 cm (5' 7 ) 05/26/2024 3:05 PM CDT Body Mass Index 37.75 05/26/2024 3:05 PM CDT Plan of Treatment Health Maintenance Due Date Last Done Comments Albumin Creatinine Ratio, Urine 1945 Hepatitis B Screening 06/23/1963 Well Visit 65+ 2010 Osteoporosis Screening-Bone Density Scan 07/21/2012 07/21/2010 DTaP/Tdap/Td Vaccine (1 - Tdap) 02/11/2014 4, 06/07/2010 Zoster Vaccine (2 of 3) 04/14/2015 02/17/2015 Pneumococcal vaccine 65+ (2 of 2 - PCV) 02/18/2016 02/17/2015 Dilated Eye Exam 04/24/2017 04/24/2016 Foot Exam 11/01/2017 11/01/2016, 0804/2016, 06/19/2016 Depression Screening 12/22/2017 12/22/2016, 09/29/19 17 Hemoglobin A1C 11/08/2023 05/08/2023, 0309/2021, 09/14/2016, Additional history exists eGFR 06/27/2024 06/28/2023, 0503/2023, 06/28/2023, Additional history exists Fall Risk Assessment 06/28/2024 06/29/2023, 02/04/2021, 08/05/2020 Influenza Vaccine (Season Ended) 2024 12/05/2019, 12/22/2016, 01/18/2016, Additional history exists Lipid Panel 04/18/2025 04/18/2024, 08/27, 06/05/2016, Additional history exists Breast Cancer Screening-Mammogram Discontinued 012 Hepatitis C Screening Completed 06/05/2016 Colon Cancer Screening-CT Colonography Discontinued 07/01/2020, 02/03/2011, 02/03/2011 Colon Cancer Screening-Colonoscopy Discontinued 07/01/2020, 02/03/2011, 02/03/2011 Colon Cancer Screening-DNA Stool Discontinued 07/01/2020, 02/03/2011, 02/03/2011 Colon Cancer Screening-FIT Discontinued 07/01, 02/03/2011, 02/03/2011 Colon Cancer Screening-FOBT Discontinued 07/2020, 02/03/2011, 02/03/2011 Colon Cancer Screening-Sigmoidoscopy Discontinued 07/01/2020, 02/03/2011, 02/03/2011 Colorectal Cancer Screening Discontinued Medical Devices Implanted Type Area Energy Trading Analyst Device Identifier Shelf Expiration Date Model / Serial / Lot [employer]ris Angio-Seal Vip 6fr Closere Device [id number] - [id number] Implanted:Qty: 1 on 06/28/2023 by Sean Eldridge MD at [facility] Collagen Left: Common Femoral Artery [employer] 03/05/2024 [id number] / / [id number] [employer]ris Angio-Seal Vip 6fr Closere Device [id number] - [id number] Implanted:Qty: 1 on 06/28/2023 by Sean Eldridge MD at [facility] Collagen Right: Common Femoral Artery [employer]ris 03/05/2024 [id number] / / [id number] Mae [employer] Valve Aortic Trnscath Tara 3 Ultra Resilia 23mm [id number] - [id number] - [id number] Implanted:Qty: 1 on 06/28/2023 by Sean Eldridge MD at [facility] Prosthetic Valve Aortic Valve [employer] 08/06/2025 [id number] / [id number] / Braxton V[employer] Device Clsr Perclose Prostyle Sut-Mediatd Closure-Repair Sys 13203-37 - [id number] Implanted:Qty: 1 on 06/28/2023 by Sean Eldridge MD at [facility] Vascular Closure Device Right: Common Femoral Artery [employer] 03/28/2025 [id number] / / [id number] [employer] Device Clsr Perclose Prostyle Sut-Mediatd Closure-Repair Sys 56597-66 - [id number] Implanted:Qty: 1 on 06/28/2023 by Sean Eldridge MD at [facility] Vascular Closure Device Right: Common Femoral Artery [employer] 03/28/2025 [id number] / / [id number] [employer] Angio-Seal Vip 6fr Closere Device [id number] - [id number] Implanted:Qty: 1 on 03/29/2023 by Edin Banks MD at [facility] [employer] 12/27/2023 [id number] / / [id number] Procedures Procedure Name Priority Date/Time Associated Diagnosis Comments ECG 12-LEAD Routine 05/26/2024 3:41 PM CDT Atrial fibrillation with RVR (HCC) TRANSTHORACIC ECHO (TTE) COMPLETE W DOPPLER/CF W CONTRAST Routine 05/26/2024 2:48 PM CDT S/P TAVR (transcatheter aortic valve replacement) TSH Routine 05/22/2024 8:39 AM CDT T4, FREE Routine 05/22/2024 8:39 AM CDT Hypothyroidism, unspecified type US THYROID Schedule Routine, Read Routine (OP Routine) 04/30/2024 11:11 AM AUTOMOBILE TECHNICIAN Other thyrotoxicosis without thyrotoxic crisis or storm T4, FREE Routine 04/18/2024 9:38 AM AUTOMOBILE TECHNICIAN THYROID FUNCTION CASCADE Routine 04/18/2024 9:38 AM AUTOMOBILE TECHNICIAN Paroxysmal atrial fibrillation (HCC) HEPATIC FUNCTION PANEL Routine 04/18/2024 9:38 AM AUTOMOBILE TECHNICIAN High cholesterol LIPID PANEL Routine 04/18/2024 9:38 AM AUTOMOBILE TECHNICIAN High cholesterol EGFR Routine 06/28/2023 10:09 PM CDT HEMOGLOBIN A1C Routine 05/08/2023 3:55 PM CDT Aortic stenosis, severe Abnormal finding of blood chemistry, unspecified COLONOSCOPY 07/01/2020 10:39 AM CDT DIABETES FOOT EXAM Routine 06/19/2016 HEPATITIS C SCREENING Routine 06/05/2016 DIABETES EYE EXAM Routine 04/24/2016 MAMMOGRAPHY Routine 2011 DEXA SCAN Routine 07/21/2010 from Last 3 Months or Most Recently Relevant to Health Maintenance Results * ECG 12 lead (05/26/2024 3:41 PM CDT) us Renee Disla LEGAL RECOVERY SPECIALIST ECG ORDERABLES Edited Res ult - Final * TRANSTHORACIC ECHO (TTE) COMPLETE W DOPPLER/CF W CONTRAST (05/26/2024 2:48 PM CDT) LV EF 40-45 % CONS SCIMAGE Anatomical Region Laterality Modality Ultrasound 05/26/2024 1:06 PM CDT Narrative 05/28/2024 5:46 PM CDT [facility] Cardiac [place] [address] [place] [address] Transthoracic Echocardiographic Report Patient Name: YANDY ROBERSON A : 1945 (78y 11m) Gender: F Study Date: 05/26/2024 01:06:40 PM Ht(Inch): 67 Wt(Lb): 264.99 BSA: 2.38 Learning Development Specialist: Kevin Sharma RDCS Location: [facility] Order Provider: YASMEENLAURIJANISSEAN BMI: 41.5 BP: 177 / 76 Ref Provider: SEAN ELDRIDGE - PROCEDURES: Echocardiographic Report: Transthoracic complete echo with strain imaging and contrast, 2D, spectral and tissue Doppler, color flow Doppler, M-mode. Contrast: Contrast Enhancement was Employed: After initial imaging due to sub- optimal quality related to co-morbidity defined by patient's body habitus, due to suboptimal image quality with inadequate visualization of at least 2 of 16 LV wall segments in any view after initial imaging. Perflutren contrast was administered using the volume necessary to obtain adequate images and. 1.9 ml Optison Administered, (1.1 ml wasted). INDICATIONS: Z95.2 Presence of prosthetic heart valve. CONCLUSIONS: 1. Status post TAVR [id number] (23 mm Tara 3, 06/28/2023). 2. No paravalvular aortic regurgitation. The aortic prosthesis demonstrates normal transvalvular gradient for valve type and size. 3. Mildly dilated left ventricle based on volume index. Eccentric LV hypertrophy. Mildly depressed left ventricular systolic function. The Ejection Fraction is visually estimated to be 40-45 %. Grade III diastolic dysfunction (elevated LA pressure, restrictive physiology). The average global longitudinal strain is abnormal. 4. Right ventricular dilatation. Normal right ventricular systolic function. 5. Mild mitral valve regurgitation. Mild calcific mitral stenosis. The mean transmitral gradient is: 4 mmHg. 6. Moderately dilated left atrium. 7. Right atrial dilatation. 8. There is moderate pulmonary hypertension. The estimated pulmonary artery systolic pressure is 53.4 mmHg. COMPARISONS: Compared with prior study, (08/06/2023) the following changes are now seen: reduced LV systolic function. ATTESTATION: I have personally reviewed and interpreted this study without fellow or resident. - DISCLAIMER: The study images and the final report will be retained in the patient chart by the Echo Laboratory for the legally required time period. This chart constitutes the legal record of any testing performed. FINDINGS: Left Ventricle: Mildly dilated left ventricle based on volume index. Eccentric LV hypertrophy. Mildly depressed left ventricular systolic function. The Ejection Fraction is visually estimated to be 40-45 %. Grade III diastolic dysfunction (elevated LA pressure, restrictive physiology). The average global longitudinal strain is abnormal. Right Ventricle: Right ventricular dilatation. Normal right ventricular systolic function. The average right ventricular strain is abnormal. Left Atrium: Moderately dilated left atrium. Right Atrium: Right atrial dilatation. Mitral Valve: Normal Mitral Valve Structure. Severe mitral annular calcification. Mild mitral valve regurgitation. Mild mitral stenosis. The mean transmitral gradient is: 4 mmHg. Specific MV Structure Abnormalities: There is restricted coaptation of the posterior mitral leaflet. Aortic Valve: No aortic valve stenosis. The mean transaortic gradient is 15 mmHg. Aortic valve dimensionless index is 0.47. A (TAVR) bioprosthetic stent-valve is present in the aortic position. The aortic valve prosthesis appears well seated. No paravalvular aortic regurgitation. The aortic prosthesis demonstrates normal transvalvular gradient for valve type and size. Tricuspid Valve: Normal tricuspid valve structure. Mild tricuspid regurgitation. Pulmonic Valve: Normal pulmonic valve structure. Mild pulmonic regurgitation. Pericardium: Normal pericardium without pericardial effusion. Aorta: Normal aortic root size at sinuses of Valsalva. Normal aortic root size when indexed. The ascending aorta is normal in size when indexed. IVC: IVC is dilated. The IVC was >2.1 cm and collapsibility <50% (est. RA pressure 15 mmHg). PASP: The estimated pulmonary artery systolic pressure is 53.4 mmHg. Estimated pulmonary artery systolic pressure is consistent with moderate pulmonary hypertension (50-70mmHg). MEASUREMENTS: 2D/MM Value Range Doppler Value Range LVIDd 2D 6.16 cm [ 3.80 - 5.20 ] AV Peak Ranjith 2.6 m/s [ 1.0 - 1.7 ] LVIDs 2D 4.81 cm [ 2.20 - 3.50 ] AV Peak PG 27.04 mmHg IVSd 2D 0.97 cm [ 0.60 - 0.90 ] AV Mean PG 15 mmHg LVPWd 2D 0.99 cm [ 0.60 - 0.90 ] AV VTI 59.4 cm LV Thickness Ratio 1.0 LVOT Peak Ranjith 1.2 m/s [ 0.7 - 1.1 ] LV FS 2D 21.83 % [ 27.00 - 45.00 ] LVOT Peak PG 5.76 mmHg LV Mass 2D 259.05 g LVOT Mean PG 3 mmHg LV Mass Index 2D 108.84 g/m2 LVOT VTI 27.8 cm RWT 0.32 LVOT/AV VTI 0.47 - Dimensionless index (DVI) EDV Mod BP 152.04 ml [ 46.00 - 106.00 ] MV E Peak Ranjith 1.6 m/s [ 0.6 - 1.3 ] LV EDV Index 63.88 ml/m2 MV A Peak Ranjith 0.6 m/s [ 1.0 - 1.2 ] ESV Mod BP 93.74 ml [ 14.00 - 42.00 ] MV E/A 2.9 ratio [ 0.8 - 1.5 ] EF Mod BP 38 % [ 54 - 74 ] MV Peak Ranjith 1.6 m/s Visually Estimated EF 40-45 % MV Peak PG 10.24 mmHg LV GLS -9.7 % [ -25.0 - -18.0 ] MV Mean PG 4 mmHg LA Length 4C 6.19 cm MV VTI 32.0 cm LA Length 2C 7.38 cm MV Decel Time 154.93 msec [ 104.00 - 258.00 ] LA Volume BP 110.05 ml Med E` Ranjith 7.4 cm/sec [ 8.0 - 25.0 ] LA Volume Index 46.24 ml/m2 [ 16.00 - 34.00 ] Lat E` Ranjith 11.1 cm/sec [ 10.0 - 25.0 ] RV Base Dimen 2D 4.3 cm [ 2.5 - 4.2 ] Average E/E` 17.30 TAPSE 1.71 cm [ 1.71 - 5.00 ] TR Peak Ranjith 3.1 m/s [ 1.0 - 2.8 ] RA Volume 95.75 ml TR Peak PG 38.4 mmHg RA Volume Index 40.23 ml/m2 RA Pressure 15 mmHg AoR Diam 2D 2.90 cm [ 2.70 - 3.70 ] RVSP 53.40 mmHg Ao Root Index 1.22 cm/m2 [ 1.00 - 2.00 ] Asc Ao Diam 2D 3.52 cm Asc Ao Index 1.48 cm/m2 Electronically Signed By: Sakshi Jiménez MD 05/28/2024 5:46:28 PM CDT Procedure Note Sakshi Jiménez MD - 05/28/2024 [facility] Card[facility] [place] [address] [place] [address] Transthoracic Echocardiographic Report Patient Name: YANDY ROBERSON A : 1945 (78y 11m) Gender: F Study Date: 05/26/2024 01:06:40 PM Ht(Inch): 67 Wt(Lb): 264.99 BSA: 2.38 Learning Development Specialist: Kevin Sharma RDCS Location: [facility] Order Provider:SEAN ELDRIDGE BMI: 41.5 BP: 177 / 76 Ref Provider: SEAN ELDRIDGE - PROCEDURES: Echocardiographic Report: Transthoracic complete echo with strain imagingand contrast, 2D, spectral and tissue Doppler, color flow Doppler, M-mode. Contrast: Contrast Enhancement was Employed: After initial imaging due tosub- optimal quality related to co-morbidity defined by patient's body habitus, due tosuboptimal image quality with inadequate visualization of at least 2 of 16 LV wallsegments in any view after initial imaging. Perflutren contrast was administered using thevolume necessary to obtain adequate images and. 1.9 ml Optison Administered, (1.1ml wasted). INDICATIONS: Z95.2 Presence of prosthetic heart valve. CONCLUSIONS: 1. Status post TAVR [id number] (23 mm Tara 3, 06/28/2023). 2. No paravalvular aortic regurgitation. The aortic prosthesisdemonstrates normal transvalvular gradient for valve type and size. 3. Mildly dilated left ventricle based on volume index. Eccentric LVhypertrophy. Mildly depressed left ventricular systolic function. The Ejection Fraction isvisually estimated to be 40-45 %. Grade III diastolic dysfunction (elevated LA pressure,restrictive physiology). The average global longitudinal strain is abnormal. 4. Right ventricular dilatation. Normal right ventricular systolicfunction. 5. Mild mitral valve regurgitation. Mild calcific mitral stenosis. Themean transmitral gradient is: 4 mmHg. 6. Moderately dilated left atrium. 7. Right atrial dilatation. 8. There is moderate pulmonary hypertension. The estimated pulmonaryartery systolic pressure is 53.4 mmHg. COMPARISONS: Compared with prior study, (08/06/2023) the following changes are now seen:reduced LV systolic function. ATTESTATION: I have personally reviewed and interpreted this study without fellow orresident. - DISCLAIMER: The study images and the final report will be retained in the patientchart by the Echo Laboratory for the legally required time period. This chart constitutesthe legal record of any testing performed. FINDINGS: Left Ventricle: Mildly dilated left ventricle based on volume index.Eccentric LV hypertrophy. Mildly depressed left ventricular systolic function. TheEjection Fraction is visually estimated to be 40-45 %. Grade III diastolic dysfunction(elevated LA pressure, restrictive physiology). The average global longitudinal strainis abnormal. Right Ventricle: Right ventricular dilatation. Normal right ventricularsystolic function. The average right ventricular strain is abnormal. Left Atrium: Moderately dilated left atrium. Right Atrium: Right atrial dilatation. Mitral Valve: Normal Mitral Valve Structure. Severe mitral annularcalcification. Mild mitral valve regurgitation. Mild mitral stenosis. The mean transmitralgradient is: 4 mmHg. Specific MV Structure Abnormalities: There is restricted coaptationof the posterior mitral leaflet. Aortic Valve: No aortic valve stenosis. The mean transaortic gradient is15 mmHg. Aortic valve dimensionless index is 0.47. A (TAVR) bioprosthetic stent-valve ispresent in the aortic position. The aortic valve prosthesis appears well seated. Noparavalvular aortic regurgitation. The aortic prosthesis demonstrates normal transvalvulargradient for valve type and size. Tricuspid Valve: Normal tricuspid valve structure. Mild tricuspidregurgitation. Pulmonic Valve: Normal pulmonic valve structure. Mild pulmonicregurgitation. Pericardium: Normal pericardium without pericardial effusion. Aorta: Normal aortic root size at sinuses of Valsalva. Normal aortic rootsize when indexed. The ascending aorta is normal in size when indexed. IVC: IVC is dilated. The IVC was >2.1 cm and collapsibility <50% (est. RApressure 15 mmHg). PASP: The estimated pulmonary artery systolic pressure is 53.4 mmHg.Estimated pulmonary artery systolic pressure is consistent with moderate pulmonaryhypertension (50-70mmHg). MEASUREMENTS: 2D/MM Value Range DopplerValue Range LVIDd 2D 6.16 cm [ 3.80 - 5.20 ] AV Peak Vel2.6 m/s [ 1.0 - 1.7 ] LVIDs 2D 4.81 cm [ 2.20 - 3.50 ] AV Peak PG27.04 mmHg IVSd 2D 0.97 cm [ 0.60 - 0.90 ] AV Mean PG15 mmHg LVPWd 2D 0.99 cm [ 0.60 - 0.90 ] AV VTI59.4 cm LV Thickness Ratio 1.0 LVOT PeakVel 1.2 m/s [ 0.7 - 1.1 ] LV FS 2D 21.83 % [ 27.00 - 45.00 ] LVOT Peak PG5.76 mmHg LV Mass 2D 259.05 g LVOT Mean PG3 mmHg LV Mass Index 2D 108.84 g/m2 LVOT VTI27.8 cm RWT 0.32 LVOT/AV VTI0.47 - Dimensionless index (DVI) EDV Mod BP 152.04 ml [ 46.00 - 106.00 ] MV E PeakVel 1.6 m/s [ 0.6 - 1.3 ] LV EDV Index 63.88 ml/m2 MV A PeakVel 0.6 m/s [ 1.0 - 1.2 ] ESV Mod BP 93.74 ml [ 14.00 - 42.00 ] MV E/A2.9 ratio [ 0.8 - 1.5 ] EF Mod BP 38 % [ 54 - 74 ] MV Peak Vel1.6 m/s Visually Estimated EF 40-45 % MV Peak PG10.24 mmHg LV GLS -9.7 % [ -25.0 - -18.0 ] MV Mean PG4 mmHg LA Length 4C 6.19 cm MV VTI32.0 cm LA Length 2C 7.38 cm MV DecelTime 154.93 msec [ 104.00 - 258.00 ] LA Volume BP 110.05 ml Med E` Vel7.4 cm/sec [ 8.0 - 25.0 ] LA Volume Index 46.24 ml/m2 [ 16.00 - 34.00 ] Lat E` Vel11.1 cm/sec [ 10.0 - 25.0 ] RV Base Dimen 2D 4.3 cm [ 2.5 - 4.2 ] Average E/E`17.30 TAPSE 1.71 cm [ 1.71 - 5.00 ] TR Peak Vel3.1 m/s [ 1.0 - 2.8 ] RA Volume 95.75 ml TR Peak PG38.4 mmHg RA Volume Index 40.23 ml/m2 RA Ujkajqgd70 mmHg AoR Diam 2D 2.90 cm [ 2.70 - 3.70 ] RVSP53.40 mmHg Ao Root Index 1.22 cm/m2 [ 1.00 - 2.00 ] Asc Ao Diam 2D3.52 cm Asc Ao Index1.48 cm/m2 Electronically Signed By: Sakshi Jiménez MD 05/28/2024 5:46:28 PM CDT Sean Eldridge MD CV ECHO PROCEDURES Final Result * (ABNORMAL) TSH (05/22/2024 8:39 AM CDT) TSH <0.01(L) 0.40 - 4.50 mIU/L [facility] 05/22/2024 8:39 AM CDT 05/22/2024 8:40 AM CDT Narrative [facility] - 05/23/2024 2:28 AM CDT FASTING:YES FASTING: YES Lanette Veliz MD LAB BLOOD ORDERABLES F inal Result Performing Organization Address [facility] de Phone Number [facility] [address] [place] [address] * (ABNORMAL) T4, free (05/22/2024 8:39 AM CDT) Free T4 4.2(H) 0.8 - 1.8 ng/dL [facility] Blood 05/22/2024 8:39 AM CDT 05/22/2024 8:40 AM CDT Narrative [facility] - 05/23/2024 2:28 AM CDT FASTING:YES FASTING: YES us Lanette Veliz MD LAB BLOOD ORDERABLES F inal Result Performing Organization Address [facility] Co de Phone Number [facility] [address] [place] [address] * US Thyroid (04/30/2024 11:11 AM AUTOMOBILE TECHNICIAN) Anatomical Region Laterality Modality Head and Neck N/A Ultrasound 05/03/2024 9:22 PM AUTOMOBILE TECHNICIAN Narrative 05/03/2024 9:23 PM AUTOMOBILE TECHNICIAN EXAM DESCRIPTION: US THYROID REASON FOR STUDY: other thyrotoxicosis without thyrotoxic crisis or storm TECHNIQUE: Ultrasound of the thyroid was performed with grayscale and color doppler. COMPARISON: Thyroid ultrasound dated 01/26/2023. FINDINGS: RIGHT: The right thyroid lobe measures 8.4 x 5.1 x 3.8 cm. Diffusely heterogeneous echotexture without a focal measured nodule. LEFT: The left thyroid lobe measures 8.5 x 4.4 x 5.5 cm. Diffusely heterogeneous echotexture without a focal measured nodule ISTHMUS: The isthmus measures 1.5 cm in AP dimension. Diffusely heterogeneous echotexture without a focal measured nodule. OTHER: According to the interventional technologist PACS note suboptimal exam due to large body habitus, patient condition and thyroid extending below the clavicles. IMPRESSION: 1. Technically difficult examination. 2. Diffusely heterogeneous thyroid gland without a focal measured nodule. ACR TI-RADS Risk Category: N/a. REFERENCE: According to the ACR Thyroid Imaging, Reporting and Data System (TI-RADS): White Paper of the ACR TI-RADS Committee Jun, 2016 recommendations regarding the management of thyroid nodules are as follows: 1. TI-RADS 1: Risk of malignancy <2%, no FNA or follow up required. 2. TI-RADS 2: Risk of malignancy <2%, no FNA or follow up required. 3. TI-RADS 3: Risk of malignancy 2%-5%. Nodules 1.5 cm or greater follow up at 1, 3 and 5 years recommended, for nodules 2.5 cm or greater FNA recommended. 4. TI-RADS 4: Risk of malignancy 5%-20% Nodules 1.0 cm or greater follow up at 1, 2, 3 and 5 years recommended, for nodules 1.5 cm or greater FNA recommended 5. TI-RADS 5: Risk of malignancy >20%. Nodules 0.5 cm or greater annual follow up for 5 years recommended, for nodules 1.0 cm or greater FNA recommended. The ACT TI-RADS committee recommends targeting no more than two nodules for FNA. If three or more nodules meet criteria for FNA, the two with the most suspicious appearance based on ACR TI-RADS points should be sampled. THIS IS AN ELECTRONICALLY VERIFIED FINAL REPORT 05/03/2024 9:23 PM - Electronically signed by Tiago Sarah D.O. AP: COLLIN Report ID: [id number] Reading Location: [place] [address] Procedure Note Tiago Sarah, DO - 05/03/2024 EXAM DESCRIPTION: US THYROID REASON FOR STUDY: other thyrotoxicosis without thyrotoxic crisis orstorm TECHNIQUE: Ultrasound of the thyroid was performed with grayscale andcolor doppler. COMPARISON: Thyroid ultrasound dated 01/26/2023. FINDINGS: RIGHT: The right thyroid lobe measures 8.4 x 5.1 x 3.8 cm. Diffusely heterogeneous echotexture without a focal measured nodule. LEFT: The left thyroid lobe measures 8.5 x 4.4 x 5.5 cm. Diffusely heterogeneous echotexture without a focal measured nodule ISTHMUS: The isthmus measures 1.5 cm in AP dimension. Diffusely heterogeneous echotexture without a focal measured nodule. OTHER: According to the interventional technologist PACS note suboptimal examdue to large body habitus, patient condition and thyroid extending below the clavicles. IMPRESSION: 1. Technically difficult examination. 2. Diffusely heterogeneous thyroid gland without a focal measurednodule. ACR TI-RADS Risk Category: N/a. REFERENCE: According to the ACR Thyroid Imaging, Reporting and Data System (TI-RADS): White Paper of the ACR TI-RADS Committee Jun, 2016recommendations regarding the management of thyroid nodules are as follows: 1. TI-RADS 1: Risk of malignancy <2%, no FNA or follow up required. 2. TI-RADS 2: Risk of malignancy <2%, no FNA or follow up required. 3. TI-RADS 3: Risk of malignancy 2%-5%. Nodules 1.5 cm or greater followup at 1, 3 and 5 years recommended, for nodules 2.5 cm or greater FNArecommended. 4. TI-RADS 4: Risk of malignancy 5%-20% Nodules 1.0 cm or greater followup at 1, 2, 3 and 5 years recommended, for nodules 1.5 cm or greater FNA recommended 5. TI-RADS 5: Risk of malignancy >20%. Nodules 0.5 cm or greater annual follow up for 5 years recommended, for nodules 1.0 cm or greater FNA recommended. The ACT TI-RADS committee recommends targeting no more than two nodulesfor FNA. If three or more nodules meet criteria for FNA, the two with themost suspicious appearance based on ACR TI-RADS points should be sampled. THIS IS AN ELECTRONICALLY VERIFIED FINAL REPORT 05/03/2024 9:23 PM - Electronically signed by Tiago Sarah D.O. AP: AP Report ID: [id number] Reading Location: [place] [address] us Gladys J. Binh LEGAL RECOVERY SPECIALIST IMG US PROCEDURES Final Result * (ABNORMAL) Thyroid Function Waldo (04/18/2024 9:38 AM AUTOMOBILE TECHNICIAN) Pathologist [facility] TSH <0.01(L) 0.40 - 4.50 mIU/L [facility] Blood 04/18/2024 9:38 AM AUTOMOBILE TECHNICIAN 04/18/2024 9:39 AM AUTOMOBILE TECHNICIAN Narrative [facility] - 04/19/2024 8:03 AM AUTOMOBILE TECHNICIAN FASTING:YES FASTING: YES Lanette Veliz MD LAB BLOOD ORDERABLES F inal Result Performing Organization Address [facility]/ZIP Co de Phone Number [facility] [address] [place] [address] * (ABNORMAL) T4, free (04/18/2024 9:38 AM AUTOMOBILE TECHNICIAN) [facility] Free T4 3.7(H) 0.8 - 1.8 ng/dL [facility] 04/18/2024 9:38 AM AUTOMOBILE TECHNICIAN 04/18/2024 9:39 AM AUTOMOBILE TECHNICIAN Narrative [facility] - 04/19/2024 8:03 AM AUTOMOBILE TECHNICIAN FASTING:YES FASTING: YES Lanette Veliz MD LAB BLOOD ORDERABLES F inal Result Performing Organization Address [facility] Co de Phone Number [facility] [address] [place] [address] * Hepatic function panel (04/18/2024 9:38 AM AUTOMOBILE TECHNICIAN) Pathologist [facility] Protein, Total 6.6 6.4 - 8.4 g/dL [facility] Albumin 3.8 3.6 - 5.1 g/dL [facility] Globulin 2.8 2.2 - 4.0 g/dL (calc) [facility] Alb/glob ratio 1.4 0.9 - 2.3 (calc) [facility] Bilirubin, total 0.7 0.2 - 1.2 mg/dL [facility] Bilirubin, direct 0.1 < OR = 0.2 mg/dL [facility] Bilirubin, indirect 0.6 0.2 - 1.2 mg/dL (calc) [facility] Alk phos 67 37 - 153 U/L [facility] AST 31 10 - 35 U/L [facility] ALT (SGPT) 13 6 - 29 U/L [facility] Blood 04/18/2024 9:38 AM AUTOMOBILE TECHNICIAN 04/18/2024 9:39 AM AUTOMOBILE TECHNICIAN Narrative [facility] - 04/19/2024 8:03 AM AUTOMOBILE TECHNICIAN FASTING:YES FASTING: YES us Lanette Veliz MD LAB BLOOD ORDERABLES F inal Result [facility] [address] [place] [address] * (ABNORMAL) Lipid panel (04/18/2024 9:38 AM AUTOMOBILE TECHNICIAN) Pathologist [facility] Cholesterol 106 <200 mg/dL [facility] HDL 43(L) > OR = 50 mg/dL [facility] Triglycerides 104 <150 mg/dL [facility] LDL 44 mg/dL (calc) [facility] Comment: Reference range: <100 Desirable range <100 mg/dL for primary prevention; <70 mg/dL for patients with CHD or diabetic patients with > or = 2 CHD risk factors. LDL-C is now calculated using the Akash-Sherif calculation, which is a validated novel method providing better accuracy than the Friedewald equation in the estimation of LDL-C. Akash MUHAMMAD et al. KWABENA. 2013;310(19): 8775-3320 (http://education.Sportilia.CoastTec/faq/IGE861) Chol/HDL ratio 2.5 <5.0 (calc) [facility] Non-HDL, (LDL+VLDL) 63 <130 mg/dL (calc) [facility] Comment: For patients with diabetes plus 1 major ASCVD risk factor, treating to a non-HDL-C goal of <100 mg/dL (LDL-C of <70 mg/dL) is considered a therapeutic option. Blood 04/18/2024 9:38 AM AUTOMOBILE TECHNICIAN 04/18/2024 9:39 AM AUTOMOBILE TECHNICIAN Narrative [facility] - 04/19/2024 8:03 AM AUTOMOBILE TECHNICIAN FASTING:YES FASTING: YES us Lanette Veliz MD LAB BLOOD ORDERABLES F inal Result [facility] [address] [place] [address] * (ABNORMAL) eGFR (06/28/2023 10:09 PM CDT) eGFR 34(L) >=60 mL/min/1. 73 m2 Comment: Interpretive Data Reference Interval Normal >/= 90 mL/min/1.73m2 Mildly decreased* 60 - 89 mL/min/1.73m2 Mildly to moderately decreased 45 - 59 mL/min/1.73m2 Moderately to severely decreased 30 - 44 mL/min/1.73m2 Severely decreased 15 - 29 mL/min/1.73m2 Kidney Failure < 15 mL/min/1.73m2 *Relative to young adult level Estimated glomerular filtration rate is determined by the 2020 CKD-EPI equation recommended by the National Kidney Foundation (A Unifying Approach to GFR Estimation: Recommendations of the NKF-ASK Task Force on Reassessing the Inclusion of Race in Diagnosing Kidney Disease, JASN 2020). The CKD-EPI equation should not be used for patients with unstable renal function and has not been validated in children and those over 70. Current interpretive data was last reviewed 2020. Blood 06/28/2023 10:0 9 PM CDT 06/28/2023 11:32 PM CDT us Shima Zayas NP LAB BLOOD ORDERABLES Final Result [facility] Department [place] [address] * (ABNORMAL) Hemoglobin A1c (05/08/2023 3:55 PM CDT) Hgb A1C 6.3(H) 4.0 - 5.6 % Estimated Average Glucose 134 mg/dL [facility] Comment: The ADA recommends reporting an estimated Average Glucose (eAG) with all Hemoglobin A1c results using the equation derived from a study of 507 normal and diabetic adults. Minority populations were underrepresented and children were not included. (Diabetes Care 31:3745-6326, 2008). The eAG is not equivalent to a fasting glucose. Blood 05/08/2023 3:55 PM CDT 05/08/2023 4:34 PM CDT us Radha Maya MD LAB BLOOD ORDERABLES Final Res ult [facility] [address] [facility]. Department [place] [address] * COLONOSCOPY (07/01/2020 10:39 AM CDT) Anatomical Region Laterality Modality Other Narrative Procedure Note Amrik Kilpatrick MD - 07/01/2020 10:39 AM CDT [facility] Patient Name: Yandy Roberson Procedure Date: 07/01/2020 10:39 AM Date of : 1945 Admit Type: Outpatient Age: 75 Gender: Female Attending MD: Amrik Kilpatrick M.D. Room: [facility] ENDOSCOPY ROOM 2 Note Status: Finalized Patient Profile: Refer to note in patient chart for documentation of history and physical. Procedure: Colonoscopy Indications: Screening for colorectal malignant neoplasm, Last colonoscopy: January 2011 Referring MD: Coleman Barrera M.D. Providers: Amrik Kilpatrick M.D. Impression: - Hemorrhoids found on perianal exam. - Diverticulosis in the sigmoid colon and in the descending colon. - The examination was otherwise normal. - No specimens collected. Recommendation: - Discharge patient to home. - Resume previous diet. - Resume Eliquis (apixaban) at prior dose today. - Repeat colonoscopy in 10 years for screening purposes. - Return to primary care physician as previously scheduled. Medicines: Propofol per Anesthesia Complications: No immediate complications. Estimated Blood Loss: Estimated blood loss: none. Procedure: Pre-Anesthesia Assessment: - This assessment was completed [Time ofAssessment] prior to the administration of sedation. The benefits, risks and alternatives of theprocedure and sedation were discussed and informed consentwas obtained. All questions were answered. Please referto the signed informed consent document in the medical record. The bowel preparation used was Miralax via single dose instruction. The bowel preparation used was bisacodyl tablets via single dose instruction.The scope was passed under direct vision. TheColonoscope [id number] was introduced through the anus and advanced to the the cecum, identified by appendiceal orifice and ileocecal valve. The colonoscopy was performed without difficulty. The patient tolerated the procedure well. The qualityof the bowel preparation was adequate to identifypolyps 6 mm and larger in size. Findings: Hemorrhoids were found on perianal exam. A few small-mouthed diverticula were found in the sigmoid colon and descending colon. The exam was otherwise without abnormality. Electronically signed by Amrik Kilpatrick M.D. Amrik Kilpatrick M.D. 07/01/2020 11:31:52 AM Number of Addenda: 0 Note Initiated On: 07/01/2020 10:39 AM Procedure Code(s): --- Professional --- G0121, Colorectal cancer screening; colonoscopy on individual not meeting criteria for high risk Diagnosis Code(s): --- Professional --- K57.30, Diverticulosis of large intestine without perforation orabscess without bleeding K64.9, Unspecified hemorrhoids Z12.11, Encounter for screening for malignant neoplasm of colon CPT copyright 2019 [place]. All rights reserved. The codes documented in this report are preliminary and upon textile machine maintenance mechanic reviewmay be revised to meet current compliance requirements. Recognized by the [place] [employer] for promoting quality in endoscopy Amrik Kilpatrick MD ENDOSCOPY PROCEDURES Final Re sult * DIABETES FOOT EXAM (06/19/2016) Pathologist [facility] Diabetic Foot Exam Unknown [facility] Provider HEALTH MAINTENANCE Final Result * HEPATITIS C SCREENING (06/05/2016) [facility] HEP C Normal Comment:Negative Result [facility] Provider HEALTH MAINTENANCE Final Result * DIABETES EYE EXAM (04/24/2016) [facility] Diabetic Eye Exam Unknown Result [facility] Provider HEALTH MAINTENANCE Final Result * MAMMOGRAPHY (2011) Pathologist [facility] Mammogram Abnormal Comment:Lft mastectomy @age 38; Rt mastectomy 08/07/11-CA [facility] Provider HEALTH MAINTENANCE Final Result * DEXA SCAN (07/21/2010) [facility] DEXA Scan Normal [facility] Provider HEALTH MAINTENANCE Final Result from Last 3 Months or Most Recently Relevant to Health Maintenance Insurance MEDICARE [facility] MEDICARE SUPPLEMENT [facility] MEDICARE SUPPLEMENT Advance Directives For more information, please contact: [phone] * Full Code (Latest Code Status on File) Date Activated Date Inactivated Comments 06/28/2023 2:00 PM 06/29/2023 9:58 PM * Full Code Date Activated Date Inactivated Comments 03/29/2023 3:47 PM 03/30/2023 12:03 AM * Full Code Date Activated Date Inactivated Comments 05/24/2021 1:14 PM 05/31/2021 7:49 PM * Full Code Date Activated Date Inactivated Comments 07/01/2020 10:05 AM 07/01/2020 4:25 PM * Full Code Date Activated Date Inactivated Comments 07/01/2020 10:05 AM 07/01/2020 10:05 AM Care Teams Merchant Banker Relationship Specialty Start Date End Date Coleman Barrera MD [address] [place] [address] PCP - General 05/26/16 Romain Joaquin MD [facility] [place] [address] Medical Oncologist/Hematologi Medical Oncology 10/16/19 Edin Banks MD [address] [place] [address] [place] [address] Consulting Physician Cardiology 04/27/23 Kathy Nash MD [phone] [place] [address] Cardiothoracic Surgery 06/29/23 Sean Eldridge MD [address] [phone] [place] [address] Consulting Physician Cardiology 06/29/23
--- OUTSIDE RECORDS SUMMARY | 2024-05-30 14:44 | XMS_ITS | Referral Summary ---
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 at [address] [place] [address] Lanette Veliz MD Abnormal finding of blood chemistry, unspecified (Primary Dx); Nonspecific abnormal results of thyroid function study 05/27/2024 Results Follow-Up [employer] [address] [facility] [address] [place] [address] Lanette Veliz MD 05/26/2024 4:05 PM CDT Ancillary Procedure [facility] [address] [place] [address] 8th [place] [address] [place] [address] Atrial fibrillation with RVR (HCC) 05/26/2024 Results Follow-Up [facility] [address] [place] [address] 8th [place] [address] [place] [address] Renee Disla NP 05/26/2024 12:52 PM CDT - 05/26/2024 11:59 PM CDT Hospital Encounter [facility] Cardiac Diagnostic Lab [facility] [address] [address] S/P TAVR (transcatheter aortic valve replacement) Discharge Disposition: Discharge to home or self care 05/26/2024 3:00 PM CDT Office Visit [address] [place] [address] [place] [address] Renee Disla NP Atrial fibrillation with RVR (HCC) (Primary Dx); S/P TAVR (transcatheter aortic valve replacement); Primary hypertension 04/30/2024 9:55 AM TIRE DESIGN ENGINEER - 04/30/2024 11:59 PM TIRE DESIGN ENGINEER Hospital Encounter [facility] 1 [place] [address] Other thyrotoxicosis without thyrotoxic crisis or storm Discharge Disposition: Discharge to home or self care 04/23/2024 Orders Only [employer] [facility] at [facility] 2 [facility] [address] [place] [address] Lanette Veliz MD Hypothyroidism, unspecified type (Primary Dx) 04/23/2024 Results Follow-Up [employer] [address] [facility] [address] [place] [address] Lanette Veliz MD 04/14/2024 Telephone [facility] [address] [place] [address] 8th [place] [address] [place] [address] Sean Eldridge MD from Last 3 Months Allergies Active Allergy Reactions Criticality Noted Date Comments Codeine Nausea And Vomiting,Nausea only,Vomiting Medium 11/28/2011 Reaction: Nausea, Vomiting, , , Qktouwf-Hqq-Nmj Reductase Inhibitors Muscle pain Medium 07/02/2023 Reaction: [...] (two) times a day 60 tablet 11 04/23/19 Active amiodarone (PACERONE) 200 mg tablet Active Active Problems Problem Noted Date Diagnosed [...] Assessment & Plan (06/28/2023 1:00 PM CDT): Accuchecks, SSI Aortic valve stenosis 05/10/2023 Coronary arteriosclerosis 03/29/2023 Assessment & Plan (05/26/2024 4:01 PM CDT): Stable. Denies angina. DIAZ could be an anginal equivalent. Intermediate CAD on [facility] prior to TAVR work up. ASA and statin. Aortic stenosis, severe 03/29/2023 Assessment & Plan (06/28/2023 12:57 PM CDT): Laura TAVR with leaflet modification procedure (BASILICA) 06/27 Cellulitis of lower extremity 05/29/2021 Paroxysmal atrial [...] (06/08/2020): Added automatically from request for surgery [id number] Breast cancer 04/11/2019 Overview (04/11/2019): Overview: completed [...] of insulin 06/30/2011 Overview (06/01/2016): Diabetes mellitus Immunizations Immunization Administration Dates Next Due Influenza, Split 12/28/2011,01/11/2011, 0 Influenza, Trivalent, High D ose, Split, Preservative Free, Intramuscular 12/22/2016,01/18/2016,11/18/2014,02/04,12/16/2012 Influenza, Trivalent, IM (MDV) 01/14/2011,2008 Influenza, Unspecified 12/28/2011 Pneumococcal Polysaccharide PPV23 02/17/2015 TD Preservative Free 02/10/2014 Td, adsorbed 06/07/2010 ZOSTER LIVE 02/17/2015 Social History Tobacco Use Types Packs/Day Years [...] on file Legal Sex Female 6:05 PM TIRE DESIGN ENGINEER Gender Identity Not on file Sexual Orientation Straight 04/04/2019 4: 40 PM TIRE DESIGN ENGINEER Last Filed Vital Signs Vital Sign Reading Time Taken Comments Blood Pressure 160/73 05/26/2024 3:05 PM CDT Pulse 78 05/26/2024 3:05 PM CDT Temperature 37.1 C (98.8 F) 06/29/2023 3:08 PM CDT Respiratory Rate 18 02/07/2024 12:42 PM TIRE DESIGN ENGINEER Oxygen Saturation 91% 05/26/2024 3:05 PM CDT Inhaled Oxygen Concentration - - Weight 109.3 kg (241 lb) 05/26/2024 3:05 PM CDT Height 170.2 cm (5' 7 ) 05/26/2024 3:05 PM CDT Body Mass Index 37.75 05/26/2024 3:05 PM CDT Plan of Treatment Not on file Medical Devices Implanted Type Area Rn Document Improvement Device Identifier Shelf Expiration Date Model / Serial / Lot [employer] Angio-Seal Vip 6fr Closere Device [id number] - [id number] Implanted:Qty: 1 on 06/28/2023 by Sean Eldridge MD at [facility] Collagen Left: Common Femoral Artery [employer] 03/05/2024 [id number] / / [id number] [employer] Angio-Seal Vip 6fr Closere Device [id number] - [id number] Implanted:Qty: 1 on 06/28/2023 by Sean Eldridge MD at [facility] Collagen Right: Common Femoral Artery [employer] 03/05/2024 [id number] / / [id number] [employer] Valve Aortic Trnscath Tara 3 Ultra Resilia 23mm [id number] - [id number] - [id number] Implanted:Qty: 1 on 06/28/2023 by Sean Eldridge MD at [facility] Prosthetic Valve Aortic Valve [employer] 08/06/2025 [id number] / [id number] / Braxton V[employer] Device Clsr Perclose Prostyle Sut-Mediatd Closure-Repair Sys 35941-04 - [id number] Implanted:Qty: 1 on 06/28/2023 by Sean Eldridge MD at [facility] Vascular Closure Device Right: Common Femoral Artery [employer] 03/28/2025 [id number] / / [id number] [employer] Device Clsr Perclose Prostyle Sut-Mediatd Closure-Repair Sys 35803-87 - [id number] Implanted:Qty: 1 on 06/28/2023 by Sean Eldridge MD at [facility] Vascular Closure Device Right: Common Femoral Artery [employer] 03/28/2025 [id number] / / [id number] Angio-Seal Vip 6fr Closere Device [id number] - [id number] Implanted:Qty: 1 on 03/29/2023 by Edin Banks MD at [facility] [id number] 12/27/2023 [id number] / / [id number] Procedures Procedure Name Priority Date/Time Associated [...] Read Routine (OP Routine) 04/30/2024 11:11 AM TIRE DESIGN ENGINEER Other thyrotoxicosis without thyrotoxic crisis or storm T4, FREE Routine 04/18/2024 9:38 AM TIRE DESIGN ENGINEER THYROID FUNCTION CASCADE Routine 04/18/2024 9:38 AM TIRE DESIGN ENGINEER Paroxysmal atrial fibrillation (HCC) HEPATIC FUNCTION PANEL Routine 04/18/2024 9:38 AM TIRE DESIGN ENGINEER High cholesterol LIPID PANEL Routine 04/18/2024 9:38 AM TIRE DESIGN ENGINEER High cholesterol EGFR Routine 06/28/2023 10:09 PM [...] (05/26/2024 3:41 PM CDT) us Renee Disla SENIOR NUCLEAR MEDICINE TECHNOLOGIST ECG ORDERABLES Edited Res ult - Final * TRANSTHORACIC ECHO (TTE) COMPLETE W DOPPLER/CF W CONTRAST (05/26/2024 2:48 PM CDT) LV EF 40-45 % CONS SCIMAGE Anatomical Region Laterality Modality Ultrasound 05/26/2024 1:06 PM CDT Narrative 05/28/2024 5:46 PM CDT [facility] [place] [address] Transthoracic Echocardiographic Report Patient Name: YANDY ROBERSON A : 1945 (78y 11m) Gender: F Study Date: 05/26/2024 01:06:40 PM Ht(Inch): 67 Wt(Lb): 264.99 BSA: 2.38 Machine Bobbin Winder: Kevin Sharma RDCS Location: [facility] Order Provider: SEAN ELDRIDGE BMI: 41.5 BP: 177 / 76 [...] heart valve. CONCLUSIONS: 1. Status post TAVR uguoy-nf-zvdpm (23 mm Tara 3, 06/28/2023). 2. No [...] Procedure Note Sakshi Jiménez MD - 05/28/2024 [facility] [place] [address] Transthoracic Echocardiographic Report Patient Name: YANDY ROBERSON A : 1945 (78y 11m) Gender: F Study Date: 05/26/2024 01:06:40 PM Ht(Inch): 67 Wt(Lb): 264.99 BSA: 2.38 Machine Bobbin Winder: Kevin Sharma RDCS Location: [facility] Order Provider:SEAN ELDRIDGE BMI: 41.5 BP: 177 [...] heart valve. CONCLUSIONS: 1. Status post TAVR kqkoh-up-ugtoy (23 mm Tara 3, 06/28/2023). 2. No [...] mmHg RA Volume Index 40.23 ml/m2 RA Qyukhury08 mmHg AoR Diam 2D 2.90 cm [ 2.70 - 3.70 ] RVSP53.40 mmHg Ao Root Index 1.22 cm/m2 [ 1.00 - 2.00 ] Asc Ao Diam 2D3.52 cm Asc Ao Index1.48 cm/m2 Electronically Signed By: Sakshi Jiménez MD 05/28/2024 5:46:28 PM CDT Sean Eldridge MD CV ECHO PROCEDURES Final Result * (ABNORMAL) TSH (05/22/2024 8:39 AM CDT) Pathologist [facility] TSH <0.01(L) 0.40 - 4.50 mIU/L [facility] 05/22/2024 8:39 AM CDT 05/22/2024 8:40 AM CDT Narrative [facility] - 05/23/2024 2:28 AM CDT FASTING:YES FASTING: YES Lanette Veliz MD LAB BLOOD ORDERABLES F inal Result Performing Organization Address [facility] Co de Phone Number [facility] [address] [place] [address] * (ABNORMAL) T4, free (05/22/2024 8:39 AM CDT) Pathologist [facility] Free T4 4.2(H) 0.8 - 1.8 ng/dL [facility] Blood 05/22/2024 8:39 AM CDT 05/22/2024 8:40 AM CDT Narrative [facility] - 05/23/2024 2:28 AM CDT FASTING:YES FASTING: YES Lanette Veliz MD LAB BLOOD ORDERABLES F inal Result Performing Organization Address [facility] de Phone Number [facility] [address] [place] [address] * US Thyroid (04/30/2024 11:11 AM TIRE DESIGN ENGINEER) Anatomical Region Laterality Modality Head and Neck N/A Ultrasound 05/03/2024 9:22 PM TIRE DESIGN ENGINEER Narrative 05/03/2024 9:23 PM TIRE DESIGN ENGINEER EXAM DESCRIPTION: US THYROID REASON FOR STUDY: [...] focal measured nodule. OTHER: According to the food technologist PACS note suboptimal exam due to [...] Tiago Sarah D.O. AP: COLLIN Report ID: [id number] Reading Location: [id number] Procedure Note Tiago Sarah, DO - 05/03/2024 [...] focal measured nodule. OTHER: According to the food technologist PACS note suboptimal examdue to large [...] Tiago Sarah D.O. AP: COLLIN Report ID: [id number] Reading Location: [place] [address] us Gladys Purcell SENIOR NUCLEAR MEDICINE TECHNOLOGIST IMG US PROCEDURES Final Result * (ABNORMAL) Thyroid Function [place] (04/18/2024 9:38 AM TIRE DESIGN ENGINEER) TSH <0.01(L) 0.40 - 4.50 mIU/L [facility] Blood 04/18/2024 9:38 AM TIRE DESIGN ENGINEER 04/18/2024 9:39 AM TIRE DESIGN ENGINEER Narrative [facility] - 04/19/2024 8:03 AM TIRE DESIGN ENGINEER FASTING:YES FASTING: YES Lanette Veliz MD LAB BLOOD ORDERABLES F inal Result Performing Organization Address City/[facility]/ZIP Co de Phone Number [facility] [address] [place] [address] * (ABNORMAL) T4, free (04/18/2024 9:38 AM TIRE DESIGN ENGINEER) Free T4 3.7(H) 0.8 - 1.8 ng/dL [facility] 04/18/2024 9:38 AM TIRE DESIGN ENGINEER 04/18/2024 9:39 AM TIRE DESIGN ENGINEER Narrative [facility] - 04/19/2024 8:03 AM TIRE DESIGN ENGINEER FASTING:YES FASTING: YES Lanette Veliz MD LAB BLOOD ORDERABLES F inal Result Performing Organization Address City/[facility]/ZIP Co de Phone Number [facility] [address] [place] [address] * Hepatic function panel (04/18/2024 9:38 AM TIRE DESIGN ENGINEER) Pathologist [facility] Protein, Total 6.6 6.4 - 8.4 g/dL [...] [facility] Blood 04/18/2024 9:38 AM TIRE DESIGN ENGINEER 04/18/2024 9:39 AM TIRE DESIGN ENGINEER Narrative [facility] - 04/19/2024 8:03 AM TIRE DESIGN ENGINEER FASTING:YES FASTING: YES Lanette Veliz MD LAB BLOOD ORDERABLES F inal Result [facility] [address] [place] [address] * (ABNORMAL) Lipid panel (04/18/2024 9:38 AM TIRE DESIGN ENGINEER) Pathologist [facility] Cholesterol 106 <200 mg/dL [facility] [...] factors. LDL-C is now calculated using the Akash-Gorman calculation, which is a validated novel method providing better accuracy than the Friedewald equation in the estimation of LDL-C. Akash SS et al. KWABENA. 2013;310(19): 3289-2977 (http://education.Kuldat/faq/HIV945) Chol/HDL ratio 2.5 <5.0 (calc) [facility] Non-HDL, (LDL+VLDL) 63 <130 mg/dL (calc) [facility] Comment: For patients with diabetes plus 1 major ASCVD risk factor, treating to a non-HDL-C goal of <100 mg/dL (LDL-C of <70 mg/dL) is considered a therapeutic option. Blood 04/18/2024 9:38 AM TIRE DESIGN ENGINEER 04/18/2024 9:39 AM TIRE DESIGN ENGINEER Narrative [facility] - 04/19/2024 8:03 AM TIRE DESIGN ENGINEER FASTING:YES FASTING: YES Lanette Veliz MD LAB BLOOD ORDERABLES F inal Result [facility] [address] [place] [address] * (ABNORMAL) eGFR (06/28/2023 10:09 PM CDT) [...] 06/28/2023 11:32 PM CDT us Shima Zayas SENIOR NUCLEAR MEDICINE TECHNOLOGIST LAB BLOOD ORDERABLES Final Result Performing Organization Address [facility] Co de Phone Number MAE BOOKERH [facility] Department [place] [address] * (ABNORMAL) Hemoglobin A1c (05/08/2023 3:55 PM CDT) Hgb A1C 6.3(H) 4.0 - 5.6 % Estimated Average Glucose 134 mg/dL [facility] HANEY Comment: The ADA recommends reporting an estimated Average Glucose (eAG) with all Hemoglobin A1c results using the equation derived from a study of 507 normal and diabetic adults. Minority populations were underrepresented and children were not included. (Diabetes Care 31:7420-4187, 2008). The eAG is not equivalent to a fasting glucose. Blood 05/08/2023 3:55 PM CDT 05/08/2023 4:34 PM CDT us Radha Maya MD LAB BLOOD ORDERABLES Final Res ult Performing Organization Address [facility] Co de Phone Number MAE BJW[facility] [address] [facility] Department [place] [address] * COLONOSCOPY (07/01/2020 10:39 AM CDT) Anatomical Region Laterality Modality Other Narrative Procedure Note Amrik Kilpatrick MD - 07/01/2020 10:39 AM CDT [facility] Patient Name: Yandy Roberson Procedure Date: 07/01/2020 10:39 AM Date of : 1945 Admit Type: Outpatient Age: 75 Gender: Female Attending MD: Amrik Kilpatrick M.D. Room: [facility]COPY [facility] 2 Note Status: Finalized Patient [...] scope was passed under direct vision. TheColonoscope [id number] was introduced through the anus and advanced [...] malignant neoplasm of colon CPT copyright 2019 [employer]. All rights reserved. The codes documented in this report are preliminary and upon fast food shift lead reviewmay be revised to meet current compliance requirements. Recognized by the [employer] for promoting quality in endoscopy Amrik Kilpatrick MD ENDOSCOPY PROCEDURES Final Re sult * DIABETES FOOT EXAM (06/19/2016) Diabetic Foot Exam Unknown Historical Provider HEALTH MAINTENANCE Final Result * HEPATITIS C SCREENING (06/05/2016) HEP C Normal Comment:Negative Historical Provider HEALTH MAINTENANCE Final Result * DIABETES EYE EXAM (04/24/2016) Diabetic Eye Exam Unknown Historical Provider HEALTH MAINTENANCE Final Result * MAMMOGRAPHY (2011) Mammogram Abnormal Comment:Lft mastectomy @age 38; Rt mastectomy 08/07/11-CA Historical Provider HEALTH MAINTENANCE Final Result * DEXA SCAN (07/21/2010) DEXA Scan Normal Historical Provider HEALTH MAINTENANCE Final Result from Last 3 Months or Most Recently Relevant to Health Maintenance Insurance MEDICARE [facility] MEDICARE SUPPLEMENT MEDICARE [facility] MEDICARE SUPPLEMENT Advance Directives For more information, please contact: [phone] * Full Code (Latest Code Status on [...] 10:05 AM 07/01/2020 10:05 AM Care Teams Food Service Worker Relationship Specialty Start Date End Date Coleman Barrera MD [address] [place] [address] PCP - General 05/26/16 Roamin Joaquin MD [address] [facility] [place] [address] Medical Oncologist/Hematologi st Medical Oncology 10/16/19 Edin Banks MD [address] [place] [address] Consulting Physician Cardiology 04/27/23 Kathy Nash MD [address] [facility] [phone] [place] [address] Cardiothoracic Surgery 06/29/23 Sean Eldridge MD [address] [facility] [phone] [place] [address] Consulting Physician Cardiology 06/29/23
--- OUTSIDE RECORDS SUMMARY | 2024-05-30 14:44 | XMS_ITS | Continuity of Care Document ---
Author Organization [facility] Address [address] [place] [address] Phone Care Team Providers Care Bundle Sorter Name Role Phone Santiago Fontaine Unavailable Unavailable Procedures Procedure Date Post-op Follow-up Visit Post-op Follow-up Visit Remove Cataract, Insert Lens Eye Exam Established Pt IOLMaster-Professional Advance Directives Directive Yes / No Effective Date File Name No Information Encounters Encounter Description Practice Location Reason(s) For Visit Diagnoses Date Provider Providers Copied on Encounter [facility], [address] [place] [address] [address], [place], [place], [id number], tel:[phone] [facility] No Information 1 [address] Minal Henderson. [address], [place], [place], [facility], . tel:[phone] [facility], [address] [place] [address] [address], [place], [place], [id number], [place] tel:[phone] [facility] No Information 8-[address] Pay[address] Haas. [address], [place], [place], [facility], [place]. tel:[phone] [facility], [address] [place] [address] [address], [place], [place], [id number], [place] tel:[phone] [facility] No Information 7-[address] M[address] Henderson. [address] , [address], [place], [address], [place]. tel:[phone] [facility], [address], [place], [place], [id number], [place] tel:[phone] [facility] No Information [address]. [address] [facility] , [address], [place], [address], [place]. tel:[phone] Family History Family Member Type Diagnosis Age At Onset No Information Payers Payer name Insurance type Covered green party ID Authoriza tion(s) No Information Social History Type Description Quantity Date Captured Comments Sex Female Smoking Status No Information Chief Complaint And Reason For Visit No Information Reason For Referral Reason For Referral No Information History Of Present Illness Encounter Date Complaint History Of Prese nt Illness No Information Functional Status Date Functional Assessmen t No Information Instructions Date Instruction Additional Infor mation No Information Assessments Type Assessment Date No Information Patient Care Teams Name Effective Dates (start - stop) Status Members No Information
--- OUTSIDE RECORDS SUMMARY | 2024-05-30 14:44 | XMS_ITS | Encounter Summary ---
Author Organization [facility] Address [address] [place] [address] Phone Care Team Providers Care Turbine Technician Name Role Phone Coleman Barrera MD Primary Care Provider + Romain Joaquin MD Unavailable Edin Banks MD Unavailable [phone] Kathy Nash MD Unavailable Michele Eldridge MD Unavailable [phone] Encounter Details Date Type Department Care Team (Late st Contact Info) Description 05/26/2024 Results Follow-Up [facility] [address] [facility] Advanced Medicine 8th [place] [address] [place] [address] Renee Disla NP [address] [facility] [address] [place] [address] Social History Tobacco Use Types Packs/Day Years [...] on file Legal Sex Female 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 Gender Identity Not on file Sexual Orientation Straight 04/04/2019 4: 40 PM SUPERVISOR GROUNDS documented as of this encounter Plan of Treatment Not on file documented as of this encounter Visit Diagnoses Not on filedocumented in this encounter Care Teams Turbine Technician Relationship Specialty Start Date End Date Coleman Barrera MD [address] [place] [address] [place] [address] PCP - General 05/26/16 Romain Joaquin MD [address] [place] [address] [place] [address] Medical Oncologist/Hematologi Medical Oncology 10/16/19 Edin Banks MD [address] [place] [address] [place] [address] Consulting Physician Cardiology 04/27/23 Kathy Nash MD [address] [facility] [phone] [place] [address] Cardiothoracic Surgery 06/29/23 Michele Eldridge MD [address] [facility] [phone] [place] [address] Consulting Physician Cardiology 06/29/23 documented as of this encounter
--- OUTSIDE RECORDS SUMMARY | 2024-05-30 14:44 | XMS_ITS | Encounter Summary ---
Author Organization [facility] Address [address] [place] [address] Care Team Providers Care Spearer Name Role Phone Coleman Barrera MD Primary Care Provider + Romain Joaquin MD Unavailable Edin Banks MD Unavailable [phone] Kathy Nash MD Unavailable [phone] Michele Eldridge MD Unavailable [phone] Encounter Details Date Type Department Care Team (Late st Contact Info) Description 05/29/2024 Results Follow-Up [facility] [address] [place] [address] Michele Eldridge MD [address] [address] Social History Tobacco Use Types Packs/Day Years [...] on file Legal Sex Female 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 Gender Identity Not on file Sexual Orientation Straight 04/04/2019 4: 40 PM BRUSH MACHINE SETTER documented as of this encounter Plan of Treatment Not on file documented as of this encounter Visit Diagnoses Not on filedocumented in this encounter Care Teams Spearer Relationship Specialty Start Date End Date Coleman Barrera MD [address] [facility] [place] [address] PCP - General 05/26/16 Romain Joaquin MD [address] [place] [address] [place] [address] Medical Oncologist/Hematologi Medical Oncology 10/16/19 Edin Banks MD [facility] [facility] [place] [address] Consulting Physician Cardiology 04/27/23 Kathy Nash MD [address] [facility] [phone] [place] [address] Cardiothoracic Surgery 06/29/23 Michele Eldridge MD [address] [facility] [phone] [place] [address] Consulting Physician Cardiology 06/29/23 documented as of this encounter
--- OUTSIDE RECORDS SUMMARY | 2024-05-30 14:45 | XMS_ITS | Clinical Summary ---
Author Organization [facility] Address [facility] [place] [address] Care Team Providers Care Segment Assembler Name Role Phone Coleman Barrera MD Primary Care Provider [phone] Adiel Paul MD Unavailable [phone] Giuliano Veliz MD Unavailable [phone] Emma Bolanos RN Unavailable [phone] Source Comments [facility],non-owned Affiliates and Associated Physician Practices is amultiple site organization consisting of ambulatory clinics and hospital sitesin [place], [place], [place] and [place]. This disclosure is being madepursuant to the Care Everywhere program and may not contain all information available regarding this patient. Last updated 17.[facility] Allergies Active Allergy Reactions Criticality Noted Date Comments Codeine Nausea and/or Vomiting 11/28/2011 Medications * Be aware that medications may not be up to date on this document. Alwaysverify current medications with the patient. Medication Sig Dispensed Refills Start Date End Date Status ROPINirole (REQUIP) 5 MG tablet Take 5 mg by mouth at bedtime. Active Preston-3 Fatty Acids (FISH OIL) 1200 MG CAPS Take 1 Tab by mouth 2 times daily. Active Multiple Vitamins-Minerals (ONE-A-DAY 50 PLUS PO) Take 1 Tab by mouth once daily. Active oxyCODONE-acetami nophen (PERCOCET) 5-325 MG tablet Take 1 Tab by mouth every 4 hours as needed for Pain. 40 Tab 0 03/27/2014 Active aspirin (ASPIRIN) 81 MG tablet Take 1 Tab by mouth once daily. 03/28/2014 Active glimepiride (AMARYL) 2 MG tablet Take 1 Tab by mouth daily with breakfast. 03/28/2014 Active insulin detemir (LEVEMIR FLEXPEN) vial Inject 10 Units subcutaneously daily before breakfast. Please follow your home sliding scale 1 Syringe 1 03/28/2014 Active ezetimibe (ZETIA) 10 MG tablet Take 1 Tab by mouth once daily. 03/28/2014 Active fenofibrate (LOFIBRA) 160 MG tablet Take 1 Tab by mouth once daily. Take with largest meal of the day. 03/28/2014 Active nebivolol (BYSTOLIC) 10 MG tablet Take 1 Tab by mouth once daily. 30 Tab 2 03/28/2014 Active amLODIPine (NORVASC) 5 MG tablet Take 1 Tab by mouth once daily. Instructed to take AM of surgery 03/28/2014 Active furosemide (LASIX) 20 MG tablet Take 1 Tab by mouth once daily. 03/28/2014 Active methocarbamol (ROBAXIN) 500 MG tablet Take 0.5 Tabs by mouth every 6 hours as needed for Muscle Spasms (chest wall pain). 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 Overview (11/26/2014): Renal Insufficiency Breast cancer Overview (11/29/2011): completed chem on 11/27/11 Immunizations Name Administration Dates Next Due INFLUENZA VACCINE 12/28/2011 Social History Tobacco Use Types Packs/Day Years Used Date Smoking Tobacco: Never Smokeless Tobacco: Never Alcohol Use Standard Drinks/Week Comments No 0 (1 standard drink = 0.6 oz pur e alcohol) Sex and Gender Information Value Date Recorded Sex Assigned at Not on file Gender Identity Not on file Sexual Orientation Not on file Last Filed Vital Signs Vital Sign Reading Time Taken Comments Blood Pressure 140/63 03/27/2014 11:15 AM COURTROOM REPORTER Pulse 64 03/27/2014 11:15 AM COURTROOM REPORTER Temperature 36.7 C (98 F) 03/27/2014 11:15 AM COURTROOM REPORTER Respiratory Rate 18 03/27/2014 11:15 AM COURTROOM REPORTER Oxygen Saturation 95% 03/27/2014 11:15 AM COURTROOM REPORTER Inhaled Oxygen Concentration 40% 01/01/2012 5 :00 PM COURTROOM REPORTER Weight 122.5 kg (270 lb) 03/24/2014 6:45 AM COURTROOM REPORTER Height 170.2 cm (5' 7 ) 03/24/2014 6:45 AM COURTROOM REPORTER Body Mass Index 42.29 03/24/2014 6:45 AM COURTROOM REPORTER Plan of Treatment Health Maintenance Due Date Last Done Comments BONE DENSITY TESTING 1945 MEDICARE AWV 12 MONTHS 1945 HEPATITIS C SCREENING 06/18/1963 DTAP/TDAP/TD VACCINES (1 - Tdap) 1964 PNEUMOCOCCAL VACCINE 50+ (1 of 1 - PCV) 06/23/1995 ZOSTER VACCINE (1 of 2) 06/23/1995 Respiratory Syncytial Virus (RSV) Vaccine Pt: or over 60 yrs (1 - 1-dose 75+ series) 2020 COVID-19 VACCINE ( - 2023-2 5 season) 2023 DEPRESSION SCREENING 02/27/2024 INFLUENZA VACCINE (Season Ended) 2024 12/28/19 12 HEPATITIS B VACCINE Aged Out No longe r eligible based on patient's age to complete this topic HIB VACCINE Aged Out No longer eligi ble based on patient's age to complete this topic HPV VACCINE Aged Out No longer eligi ble based on patient's age to complete this topic MENINGOCOCCAL (Group B) VACC INE SHARED DECISION-MAKING Aged Out No longer eligibl e based on patient's age to complete this topic MENINGOCOCCAL GROUPS A/C/Y/W VACCINE Aged Out No longer eligible b ased on patient's age to complete this topic Advance Directives Documents on File Type Date Recorded Patient Pricing Director Expl anation Adv Directive/Living Will/POA 01/12/2012 2:00 PM * Full Code (Latest Code Status on File) Date Activated Date Inactivated Comments 03/24/2014 5:47 PM 03/27/2014 5:02 PM * Full Code Date Activated Date Inactivated Comments 03/24/2014 4:39 PM 03/24/2014 5:47 PM * FULL RESUSCITATION Date Activated Date Inactivated Comments 01/01/2012 2:01 PM 01/11/2012 2:16 PM Care Teams Segment Assembler Relationship Specialty Start Date End Date Coleman Barrera MD PCP - General Internal Medicine 11/24/11 Adiel Paul MD [address] [place] [id number] Oncology 12/12/11 Giuliano Veliz MD [address] [place] [id number] Rehab Physician Cardiovascular Disease 10/30/13 Emma Bolanos, RN Body Care Manager 03/25/14
--- OUTSIDE RECORDS SUMMARY | 2024-05-30 14:46 | XMS_ITS | Continuity of Care Document ---
Author Organization [facility] Address [address] [place] [address] Phone Care Team Providers Care Segment Producer Name Role Phone Santiago Fontaine Unavailable Unavailable Procedures Procedure Date Post-op Follow-up Visit Post-op Follow-up Visit Remove Cataract, Insert Lens Eye Exam Established Pt IOLMaster-Professional Advance Directives Directive Yes / No Effective Date File Name No Information Encounters Encounter Description Practice Location Reason(s) For Visit Diagnoses Date Provider Providers Copied on Encounter [facility], [address] [place] [address] [address], [place], [place], [id number], tel:[phone] [facility] No Information 1 8 Minal Henderson. [address] , [address], [place], [place], [facility], . tel:[phone] [facility], [address] [place] [address] [address], [place], [place], [id number], [place] tel:[phone] [facility] No Information 8-200 7 Payton Haas. [address] , [address], [place], [facility], [place]. tel:[phone] [facility], [address] [place] [address] [address], [place], [place], [id number], [place] tel:[phone] [facility] No Information 7-200 7 Minal Henderson. [address] , [address], [place], [address], [place]. tel:[phone] [facility], [address], [place], [place], [id number], [place] tel:[phone] [facility] No Information [address] Minal Henderson. [address] [facility] , [address], [place], [address], [place]. tel:[phone] Family History Family Member Type Diagnosis Age At Onset No Information Payers Payer name Insurance type Covered constitution party ID Authoriza tion(s) No Information Social [...]
[2024-05-30 14:52] VITALS: BP 165/69; PULSE 89; RESP 22; TEMP 36.3; O2SAT 96
--- NOTE | 2024-05-30 15:02 | ED.EPISTAXIS ---
HPI - Epistaxis General Chief complaint: Epistaxis Stated complaint: Nose Bleed Time Seen by Provider: 05/30/24 15:02 Source: patient, RN notes reviewed and old records reviewed Mode of arrival: ambulatory Limitations: no limitations History of Present Illness HPI Narrative: 78-year-old female presents to the [facility] with concerns for a bloody nose that has been intermittent since 11/25 this morning. Currently no bleeding noted. Patient currently on Eliquis Patient was requesting blood work, explained that that is not a service that we offer. Onset (ago): hour(s) Related Data Home Medications ?Medication ?Instructions ?Recorded ?Confirmed ?Last Taken ?Type baclofen 10 mg tablet 10 mg PO DAILY 11/02/20 12/17/23 Unknown History carvedilol 25 mg tablet 25 mg PO BID 11/02/20 12/17/23 Unknown History furosemide 40 mg tablet 40 mg PO BID 11/02/20 12/17/23 Unknown History gabapentin 300 mg capsule 300 mg PO QID 11/02/20 12/17/23 Unknown History liraglutide 0.6 mg/0.1 mL (18 mg/3 0.6 mg subcut DAILY 11/02/20 12/17/23 Unknown History mL) subcutaneous pen injector (Victoza 3-Chaz) insulin degludec 200 unit/mL (3 40 unit subcut DAILY 03/14/21 12/17/23 Unknown History mL) subcutaneous pen (Tresiba FlexTouch U-200 insulin) finerenone 10 mg tablet (Kerendia) 10 mg PO DAILY 06/14/23 12/17/23 Unknown History acetaminophen 325 mg tablet 325 mg PO ONCE PRN Pain 12/17/23 12/17/23 Unknown History amiodarone 200 mg tablet 200 mg PO DAILY 12/17/23 12/17/23 Unknown History aspirin 81 mg capsule 81 mg PO DAILY 12/17/23 12/17/23 Unknown History bempedoic acid 180 mg-ezetimibe 10 1 tablet PO DAILY 12/17/23 12/17/23 Unknown History mg tablet (Nexlizet) flash glucose scanning reader 12/17/23 12/17/23 Unknown History (FreeStyle Marco 2 [place]) multivitamin 1 tablet PO DAILY 12/17/23 12/17/23 Unknown History omega-3-dha 29 mg-epa 6 mg-fish 1 tablet PO DAILY 12/17/23 12/17/23 Unknown History oil 133 mg-vit D3 100 unit chew tablet (Fish Oil-Vit D3) oxygen-air delivery systems 12/17/23 12/17/23 Unknown History rivaroxaban 10 mg tablet (Xarelto) 10 mg PO DAILY 12/17/23 12/17/23 Unknown History Allergies Allergy/AdvReac Type Severity Reaction Status Date / Time codeine AdvReac Unknown Nausea Verified 09/05/23 16:16 Review of Systems Review of Systems: All systems reviewed & are unremarkable except as noted in HPI and below Constitutional: Constitutional: Reports no additional constitutional complaints ENT: Reports as per HPI Cardiovascular: Cardiovascular: Reports no additional cardiovascular complaints, Denies chest pain and Denies dyspnea Respiratory: Respiratory: Reports no additional respiratory complaints, Denies chest congestion, Denies cough and Denies dyspnea Musculoskeletal: Musculoskeletal: Reports no additional musculoskeletal complaints Integumentary/Breasts: Skin/Breast: Reports system reviewed and no additional complaints, except as docu PMFSH Past Medical History Medical History Congestive heart failure Atrial fibrillation Breast cancer with chemotherapy Restless leg syndrome Diabetes mellitus Hypertension Elevated cholesterol Surgical History Surgical History No pertinent past surgical history History of bilateral mastectomy History of heart valve replacement aortic Family History Family History Mother No pertinent past medical history Social History Social History Smoking status: Never smoker Alcohol intake: current Alcohol use details: rare Substance use: never Living arrangements: with family Gender identity (if verbalized by the patient): Female Sexual Orientation (if Verbalized by the Patient): Straight or Heterosexual Spiritual care concerns: No Comments At the time of my signature, I reviewed and agree with the nursing past medical, surgical, social, and family history. There is no relevant family history pertinent to the patient complaint. Exam Const: General: cooperative, healthy appearing, comfortable, no acute distress, well developed, alert and well nourished Nutritional Appearance: well nourished and obese Orientation/consciousness: patient oriented x3 Limitations: no limitations HENMT: Head: normal to inspection Face/Nose/Sinus: Normal external nose present and Nasal discharge present bloody on the right Eyes: General: appearance normal, both eyes and all related structures Alignment and Position: alignment normal Neck: Neck: normal visual inspection, full ROM, no lymphadenopathy and no meningeal signs Chest: Chest palpation & inspection: normal inspection of the chest Resp: Effort & Inspection: normal respiratory effort and able to speak in complete sentences Cardio: Rate: regular rate Skin: General skin exam: normal color and no rashes or lesions noted Neuro: General: patient oriented x3, moves all extremities and no meningeal signs Cognition (Neuro): normal cognition Speech: normal speech Gait exam (Neuro): Normal gait present Extrem: General: normal to inspection and full ROM Psych: Appearance: grossly normal and well kempt Mental Status: mental status grossly normal Speech and movement: Normal speech and movement present and Clear speech present Affect: normal affect Attitude: cooperative Course Course Level of Care: Express Care Visit Vital Signs Vital signs: Vital Signs Temperature 97.4 F L 05/30/24 14:52 Pulse Rate 89 05/30/24 14:52 Respiratory Rate 22 H 05/30/24 14:52 Blood Pressure 165/69 H 05/30/24 14:52 Pulse Oximetry 96 05/30/24 14:52 Temperature 97.4 F L 05/30/24 14:52 Pulse Rate 89 05/30/24 14:52 Respiratory Rate 22 H 05/30/24 14:52 Blood Pressure 165/69 H 05/30/24 14:52 Pulse Oximetry 96 05/30/24 14:52 Reviewed MDM - Epistaxis MDM Narrative Medical decision making narrative: Patient sitting in exam room. Nontoxic, vitals are stable except blood pressure mildly elevated. Patient does take blood pressure medication. Patient presents with concerns for a bloody nose, no bleeding noted, dry clot noted to the septal aspect of the right Kahn. Discussed on had a stop bleeding, signs and symptoms to proceed to the emergency room. Patient had asked about having lab work done, explained that is not a service that we offer through the urgent care. Discharge instructions reviewed with patient, as well as provided in writing per nursing staff. The instructions also include specific and strict return/GO TO THE ER as well as f/u information. All questions have been answered, and the patient deny any further questions with discharge and discharge plan. Some parts of this dictation were generated by voice recognition software and may contain typographical and/or grammatical inaccuracies. Differential Diagnosis Differential diagnosis: Likely anterior epistaxis and posterior epistaxis Critical Care Time Critical Care Time Critical Care Time: No Discharge Plan Discharge Clinical Impression: Epistaxis Patient Disposition: Home, Self-Care Condition: Stable Instructions: Antibiotic Form, Nosebleed (ED) Additional Instructions: If your nose starts to bleed please apply clamp wait minimum of 20 minutes without letting pressure go. Help prevent you can use a nasal moisturizing ointment or saline spray. Follow-up with your primary care provider this coming week to have your blood pressure checked and possible blood work to check for your bleeding. Bloody nose returns and does not stop within 20 minutes please go directly to the nearest emergency room for further evaluation Patient Language: Romanian Prescriptions: No Action furosemide 40 mg tablet 40 mg PO BID liraglutide [Victoza 3-Chaz] 0.6 mg/0.1 mL (18 mg/3 mL) pen injector 0.6 mg SUBCUT DAILY carvedilol 25 mg tablet 25 mg PO BID gabapentin 300 mg capsule 300 mg PO QID baclofen 10 mg tablet 10 mg PO DAILY insulin degludec [Tresiba FlexTouch U-200] 200 unit/mL (3 mL) insulin pen 40 unit SUBCUT DAILY Kerendia 10 mg tablet 10 mg PO DAILY Xarelto 10 mg Tablet 10 mg PO DAILY Rx Instructions: for 35 days (DME) FreeStyle Marco 2 [place] Misc MISCELLANEOUS multivitamin [A To Z Multivitamin] Tablet 1 tablet PO DAILY acetaminophen 325 mg Tablet 325 mg PO ONCE PRN (Reason: Pain) Fish Oil-Vit D3 29 mg-6 mg-133 mg-100 unit Tablet,Chewable 1 tablet PO DAILY aspirin 81 mg Capsule 81 mg PO DAILY amiodarone 200 mg Tablet 200 mg PO DAILY (DME) Horizon Nasal Cpap System Device MISCELLANEOUS Nexlizet 180-10 mg Tablet 1 tablet PO DAILY Follow-up/Referrals: Bruce,Mark Solis MD [Primary Care Provider] - 3 Days ([facility] follow-up) Time of Disposition: 15:09
== END 2024-05-30 15:12 | disposition home or self-care (01) ==
PROVIDERS: Emergency Provider Nurse Practitioner; PCP Internal Medicine
DX: R04.0 Epistaxis (principal); I11.0 Hypertensive heart disease with heart failure; E11.9 Type 2 diabetes mellitus without complications; Z79.4 Long term (current) use of insulin; E78.00 Pure hypercholesterolemia, unspecified; I48.91 Unspecified atrial fibrillation; G25.81 Restless legs syndrome; Z85.3 Personal history of malignant neoplasm of breast; Z90.13 Acquired absence of bilateral breasts and nipples; Z92.21 Personal history of antineoplastic chemotherapy; Z95.2 Presence of prosthetic heart valve; Z79.82 Long term (current) use of aspirin; Z79.01 Long term (current) use of anticoagulants
CPT/HCPCS: 99211; G0463